=== PATIENT | female | born 1955 | race Caucasian/White ===

== ENCOUNTER 2016-07-29 10:32 | Outpatient (CLI) | payer MEDICAID | END 2016-07-29 10:33 | disposition home or self-care (01) | DX: J45.909 Unspecified asthma, uncomplicated (principal) ==

== ENCOUNTER 2016-10-22 07:45 | Outpatient (CLI) | payer MEDICAID | END 2016-10-22 23:59 | DX: R10.9 Unspecified abdominal pain (principal); E11.9 Type 2 diabetes mellitus without complications ==

== ENCOUNTER 2016-11-12 10:59 | Outpatient (CLI) | payer MEDICAID ==
--- NOTE | 2016-11-12 15:34 | XRAY Report ---
THREE VIEW LUMBAR SPINE: 11/12/2016 CLINICAL INDICATION: Degenerative disease. COMPARISON: 03/18/2016. FINDINGS: AP, lateral, and coned down views of the lumbar spine demonstrate mild degenerative disk a nd facet disease. There is no evidence of interval fracture or subluxation. The bowel gas pattern des ears unremarkable. IMPRESSION: STABLE DEGENERATIVE CHANGES, MILD. JOB #: [id number] EXT JOB #:[id number]
== END 2016-11-12 11:00 | disposition home or self-care (01) ==
LOC: DI.N 10:59
PROVIDERS: ATTEND Family Medicine
DX: M51.36 Other intervertebral disc degeneration, lumbar region (principal); M47.816 Spondylosis without myelopathy or radiculopathy, lumbar region
CPT/HCPCS: 72100

== ENCOUNTER 2017-02-04 10:34 | Outpatient (CLI) | payer MEDICAID ==
[2017-02-04 13:43] LABS: CALCIUM 9.8 mg/dL (8.5-10.3); POTASSIUM 3.7 mmol/L (3.5-5.0)
== END 2017-02-04 10:35 | disposition home or self-care (01) ==
LOC: LAB.N 10:34
PROVIDERS: ATTEND Family Medicine
DX: E11.9 Type 2 diabetes mellitus without complications (principal); E03.9 Hypothyroidism, unspecified
CPT/HCPCS: 36415; 80048; 83036; 84443

== ENCOUNTER 2017-05-21 08:00 | Outpatient (CLI) | payer MEDICAID ==
[2017-05-21 13:20] LABS: CALCIUM 9.6 mg/dL (8.5-10.3); CREATININE 1.1 mg/dL (0.4-1.0); POTASSIUM 3.4 mmol/L (3.5-5.0)
[2017-05-21 14:10] LABS: HEMOGLOBIN A1C 1.01 g/dL
== END 2017-05-21 08:01 | disposition home or self-care (01) ==
LOC: LAB.N 08:00
PROVIDERS: ATTEND Family Medicine
DX: E11.9 Type 2 diabetes mellitus without complications (principal); R19.4 Change in bowel habit
CPT/HCPCS: 36415; 80048; 82270; 83036

== ENCOUNTER 2017-06-03 06:08 | Day surgery (SDC) | payer MEDICAID ==
[2017-06-03] MEDS ORDERED: LACTATED RINGERS 1,000 ML IV ONE (07:17)
[2017-06-03] MEDS ORDERED: MIDAZOLAM 2 MG/2 ML VIAL IVP ONE (07:40)
[2017-06-03] MEDS ORDERED: fentaNYL 100 MCG/2 ML VIAL IVP ONE (07:40)
[2017-06-03] MEDS ORDERED: BENZOCAINE/TETRACAINE/BUTAMBEN SPRAY 56 GM TOP ONE (07:42)
[2017-06-03 08:35] VITALS: BP 125/61
== END 2017-06-03 06:09 | disposition home or self-care (01) ==
LOC: SDS 06:08
PROVIDERS: ATTEND Surgery
PROC: 0DB68ZX Excision of Stomach, Via Natural or Artificial Opening Endoscopic, Diagnostic (ICD-10-PCS; principal; 2017-06-03 07:30)
PROC: 0DBP8ZX Excision of Rectum, Via Natural or Artificial Opening Endoscopic, Diagnostic (ICD-10-PCS; 2017-06-03 07:30)
DX: D13.1 Benign neoplasm of stomach (principal); K62.1 Rectal polyp; K64.8 Other hemorrhoids; E11.22 Type 2 diabetes mellitus with diabetic chronic kidney disease; I12.9 Hypertensive chronic kidney disease with stage 1 through stage 4 chronic kidney disease, or unspecified chronic kidney disease; N18.3 Chronic kidney disease, stage 3 (moderate); Z79.4 Long term (current) use of insulin; Z79.84 Long term (current) use of oral hypoglycemic drugs; J45.909 Unspecified asthma, uncomplicated
CPT/HCPCS: 43239; 45385; A9270; J7120

== ENCOUNTER 2017-06-23 00:41 | Emergency (ER) | payer MEDICAID ==
[2017-06-23] MEDS ORDERED: DEXAMETHASONE 10 MG/ML VIAL IVP STA (01:27)
[2017-06-23] MEDS ORDERED: KETOROLAC 60 MG/2 ML VIAL IVP STA (01:27)
[2017-06-23] MEDS ORDERED: SODIUM CHLORIDE 0.9% 1,000 ML IV ONE (01:27)
--- NOTE | 2017-06-23 01:29 | ED Physician Documentation ---
PD HPI BACK PAIN - Stated complaint Stated Complaint: BACK PAIN - Chief complaint Chief Complaint: Trauma Ch/Bk - History obtained from History obtained from: Patient, Family - History of Present Illness Timing - onset: How many days ago (2) Timing - duration: Days (2) Timing - details: Abrupt onset, Still present Location: Lower, Left Quality: Pain, Spasm, Sharp, Similar to prior episodes Associated symptoms: No: Fever, Weakness, Numbness, Incontinent of urine, Unable to urinate, Hematuria, Incontinent of stool Improves with: Rest, Position Worsened by: Movement Contributing factors: Other (slipped in the stauffer and lukasz her back) Similar symptoms before: Diagnosis (sciatica) Recently seen: Not recently seen - Additional information Additional information: 61-year-old diabetic female on Lantus and metformin was in her home 2 days ago when she slipped in the stauffer and lukasz her back. She did not have a direct contusion of the back and she did not fall to the ground. She has had pain in her back worse than usual for the past 2 days and now she has intolerable pain. She does have some oxycodone at home and she is refused to take this. She states that she is getting up to urinate at night 4-5 times. She thinks that her diabetes has been controlled with sugars in the 120 range in the morning. Review of Systems Constitutional: denies: Fever, Chills, Myalgias Eyes: denies: Decreased vision Ears: denies: Ear pain Nose: denies: Rhinorrhea / runny nose, Congestion Throat: denies: Sore throat Cardiac: denies: Chest pain / pressure, Palpitations Respiratory: denies: Dyspnea, Cough GI: reports: Abdominal Pain, Nausea, Constipation, Diarrhea. denies: Vomiting : denies: Dysuria, Frequency Skin: denies: Rash Musculoskeletal: reports: Back pain. 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5 mg Tablet] glipiZIDE [Glucotrol] 10 mg PO BID 03/17/13 06/23/17 Insulin Glargine [Lantus Solostar] 100 unit SQ BID 06/02/17 06/23/17 Sulfamethoxazole/Trimethoprim 1 each PO BID #14 tablet 06/23/17 [Sulfamethoxazole-Tmp Ds Tablet] - Allergies Allergies/Adverse Reactions: Allergies Allergy/AdvReac Type Severity Reaction Status Date / Time codeine [Codeine] Allergy "gets Verified 06/23/17 00:52 crazy" phenazopyridine HCl * Allergy Itching Verified 06/23/17 00:52 [From Pyridium] - Social History Does the pt smoke?: No Smoking Status: Never smoker Does the pt drink ETOH?: No Does the pt have substance abuse?: No - POLST Patient has POLST: No PD ED PE NORMAL - Vitals Vital signs reviewed: Yes (hypertensive ) - General General: No acute distress, Well developed/nourished - HEENT HEENT: Atraumatic, PERRL, EOMI - Neck Neck: Supple, no meningeal sign - Cardiac Cardiac: RRR, No murmur - Respiratory Respiratory: No respiratory distress, Clear bilaterally - Abdomen Abdomen: Soft, Non tender - Back Back: No CVA TTP, No spinal TTP, Other (There is some mild tenderness to the lower lumbar spine on the left with palpable muscle spam. ) - Derm Derm: Normal color, Warm and dry, No rash - Extremities Extremities: No deformity, No edema - Neuro Neuro: No motor deficit, No sensory deficit Eye Opening: Spontaneous Motor: Obeys Commands Verbal: Oriented GCS Score: 15 - Psych Psych: Normal mood, Normal affect Results - Vitals Vitals: Vital Signs - 24 hr 06/23/17 06/23/17 06/23/17 00:48 02:21 02:40 Temperature 36.7 C Heart Rate 83 70 70 Respiratory 18 16 14 Rate Blood Pressure 173/77 H 147/83 H 146/82 H O2 Saturation 98 97 96 06/23/17 06/23/17 03:23 03:54 Temperature 36.6 C Heart Rate 73 73 Respiratory 16 16 Rate Blood Pressure 150/89 H 157/86 H O2 Saturation 95 97 Oxygen O2 Source Room air - Labs Labs: Laboratory Tests 06/23/17 06/23/17 06/23/17 01:40 01:40 02:30 WBC 9.5 RBC 5.35 Hgb 14.0 Hct 42.7 MCV 79.9 L MCH 26.2 L MCHC 32.8 RDW 14.8 Plt Count 231 MPV 8.8 Neut # 5.5 Lymph # 3.0 [place] # 0.6 Eos # 0.3 Baso # 0.1 Absolute Nucleated RBC 0.00 Nucleated RBC % 0.0 Sodium 136 Potassium 3.2 L Chloride 102 Carbon Dioxide 24 Anion Gap 10.0 BUN 12 Creatinine 0.9 Estimated GFR (MDRD) 63 L Glucose 192 H Calcium 9.1 Total Bilirubin 0.8 AST 43 H ALT 52 Alkaline Phosphatase 64 Total Protein 7.7 Albumin 3.9 Globulin 3.8 Albumin/Globulin Ratio 1.0 Lipase 21 L Urine Color DARK YELLOW Urine Clarity CLOUDY Urine pH 6.0 Ur Specific [place] >=1.030 H Urine Protein 30 H Urine Glucose (UA) 100 H Urine Ketones NEGATIVE Urine Occult Blood NEGATIVE Urine Nitrite POSITIVE H Urine Bilirubin NEGATIVE Urine Urobilinogen 0.2 (NORMAL) Ur Leukocyte Esterase NEGATIVE Urine RBC 6-10 H Urine WBC 6-10 H Ur Squamous Epith Cells FEW Squamous Urine Crystals 0-2 Calcium Oxalate Urine Bacteria Many H Ur Microscopic Review INDICATED Urine Culture Comments INDICATED Procedures - IVC sono (time) 0125 Bedside IVC sono: IVC measures (cm) (1.18), IVC collapsed c insp (cm) (complete) , Dehydration (est 1 liter down) PD MEDICAL DECISION MAKING - ED course Complexity details: reviewed old records, reviewed results, re-evaluated patient , considered differential, d/w patient, d/w family ED course: 61-year-old diabetic female comes to the emergency department after jarring her back 2 days ago and has persistent pain. She is found to be dehydrated on interrogation of the inferior vena cava and an IV is begun she is given a liter of saline 30 of Toradol and 10 of dexamethasone. She did get warning about the dexamethasone causing some increase in her blood sugar. She has some improvement and a urine specimen is obtained that suggests an acute infection. I do not think this is pyelo. She is given a dose of rocephin. My interpretation of the patient's presentation is that she has had urinary tract infection and elevated blood glucose causing dehydration and when she lukasz her back she was unable to control the spasms of the muscles in her back and this was improved by the use of the intravenous hydration and medications. Departure - Departure Disposition: 01 Home, Self Care Clinical Impression: Dehydration, Spasm of back muscles Urinary tract infection Qualifiers: Urinary tract infection type: acute cystitis Hematuria presence: without hematuria Qualified Code(s): N30.00 - Acute cystitis without hematuria Instructions: ED UTI Cystitis Female, ED Dehydration, ED Low Back Pain Injury Follow-Up: Barrington Robles MD [Primary Care Provider] - Prescriptions: Sulfamethoxazole/Trimethoprim [Sulfamethoxazole-Tmp Ds Tablet] 1 each PO BID # 14 tablet
[2017-06-23 01:51] LABS: BASOPHILS # (AUTO) 0.1 10^3/uL (0.0-0.1); BASOPHILS % (AUTO) 1.4 %; EOSINOPHILS # (AUTO) 0.3 10^3/uL (0.0-0.7); EOSINOPHILS % (AUTO) 2.8 %; HCT - HEMATOCRIT 42.7 % (37.0-47.0); LYMPHOCYTES % (AUTO) 31.1 %; MEAN CORPUSCULAR HEMOGLOBIN 26.2 pg (27.0-31.0); MEAN CORPUSCULAR HGB CONC 32.8 g/dL (32.0-36.0); MEAN CORPUSCULAR VOLUME 79.9 fL (81.0-99.0); MEAN PLATELET VOLUME 8.8 fL (7.9-10.8); MONOCYTES # (AUTO) 0.6 10^3/uL (0.0-1.0); MONOCYTES % (AUTO) 6.6 %; NEUTROPHILS # (AUTO) 5.5 10^3/uL (1.5-6.6); NEUTROPHILS % (AUTO) 58.1 %; RED BLOOD COUNT 5.35 10^6/uL (4.20-5.40); RED CELL DISTRIBUTION WIDTH 14.8 % (12.0-15.0); UNCORRECTED WHITE BLOOD COUNT 9.5 x10^3/uL; WHITE BLOOD COUNT 9.5 x10^3/uL (4.8-10.8)
[2017-06-23 02:03] LABS: BILIRUBIN,TOTAL 0.8 mg/dL (0.2-1.0); CALCIUM 9.1 mg/dL (8.5-10.3); CREATININE 0.9 mg/dL (0.4-1.0); POTASSIUM 3.2 mmol/L (3.5-5.0); TOTAL PROTEIN 7.7 g/dL (6.7-8.2)
[2017-06-23] MEDS ORDERED: POTASSIUM BICARB 25 MEQ TABLET PO STA (02:15)
[2017-06-23 02:38] LABS: BILIRUBIN,URINE NEGATIVE (NEGATIVE)
[2017-06-23 02:44] LABS: UA w/ MICROSCOPIC CHARGE YES
[2017-06-23 02:56] LABS: UR CULTURE IF IND INDICATED
[2017-06-23] MEDS ORDERED: cefTRIAXone 1 GM in SODIUM CHLORIDE 0.9% MINIBAG 100 ML IV STA (03:08)
[2017-06-23 03:56] VITALS: BP 157/86
== END 2017-06-23 04:14 | disposition home or self-care (01) ==
LOC: ED 00:41
DX: E86.0 Dehydration (principal); M62.830 Muscle spasm of back; W01.0XXA Fall on same level from slipping, tripping and stumbling without subsequent striking against object, initial encounter; Y92.018 Other place in single-family (private) house as the place of occurrence of the external cause; N30.00 Acute cystitis without hematuria; E11.9 Type 2 diabetes mellitus without complications; Z79.4 Long term (current) use of insulin; I10 Essential (primary) hypertension; E78.00 Pure hypercholesterolemia, unspecified; E03.9 Hypothyroidism, unspecified; M79.7 Fibromyalgia; M19.90 Unspecified osteoarthritis, unspecified site; Z79.82 Long term (current) use of aspirin
CPT/HCPCS: 36415; 80053; 81001; 83690; 85025; 87086; 87181; 96361; 96365; 96375; 99283; 99284; A9270; 81003

== ENCOUNTER 2017-06-25 06:50 | Emergency (ER) | payer MEDICAID ==
[2017-06-25] MEDS ORDERED: SODIUM CHLORIDE 0.9% 1,000 ML IV ONE (07:28)
[2017-06-25] MEDS ORDERED: HYDROmorphone 1 MG/ML SYRINGE IVP STA (07:28)
[2017-06-25] MEDS ORDERED: ONDANSETRON 4 MG/2 ML VIAL IVP STA (07:28)
--- NOTE | 2017-06-25 07:31 | ED Physician Documentation ---
PD HPI ABD PAIN - Stated complaint Stated Complaint: LT SIDE PX - Chief complaint Chief Complaint: Abd Pain - History obtained from History obtained from: Patient - History of Present Illness Timing - duration: Days (5) Timing - details: Still present Quality: Pain Location: LUQ, LLQ Radiation: Left flank Worsened by: Moving, Breathing, Palpation Associated symptoms: Nausea. No: Fever, Vomiting, Diarrhea, Dysuria, Chest pain Similar symptoms before: Has not had sx before Recently seen: Emergency Dept (2 days ago.) - Treatment prior to arrival Treatment prior to arrival: Tylenol and oxycodone without relief. - Additional information Additional information: The patient is a 61-year-old female who presents with left abdominal and flank pain that started after stumbling and falling at home about 5 days ago. She was seen in the emergency department here 2 days ago, and was treated for musculoskeletal back pain. She denies relief of symptoms with Tylenol and oxycodone. She was also treated for urinary tract infection with parenteral ceftriaxone followed by oral Bactrim. She reports resolution of dysuria since being on antibiotics. She denies fever. She reports nausea, without vomiting. Her pain is worse with respiratory inspiration, or with movement. She denies history of similar symptoms in the past. Her past medical history is significant for chronic back pain associated with fibromyalgia and spinal stenosis. She reports her pain today is different from her chronic back pain. She underwent upper endoscopy and colonoscopy 2 weeks ago, including polypectomy , without incident. Review of Systems Constitutional: denies: Fever Ears: denies: Tinnitus/ringing Nose: denies: Congestion Throat: denies: Sore throat Cardiac: denies: Chest pain / pressure Respiratory: denies: Dyspnea, Cough GI: reports: Abdominal Pain, Nausea. denies: Vomiting, Diarrhea, Bloody / black stool : denies: Dysuria Skin: denies: Lesions Musculoskeletal: reports: Back pain. 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5 mg Tablet] glipiZIDE [Glucotrol] 10 mg PO BID 03/17/13 06/25/17 Insulin Glargine [Lantus Solostar] 100 unit SQ BID 06/02/17 06/25/17 Sulfamethoxazole/Trimethoprim 1 each PO BID #14 tablet 06/23/17 06/25/17 [Sulfamethoxazole-Tmp Ds Tablet] HYDROmorphone [Dilaudid] 2 mg PO Q6H PRN #15 tablet 06/25/17 - Allergies Allergies/Adverse Reactions: Allergies Allergy/AdvReac Type Severity Reaction Status Date / Time codeine [Codeine] Allergy "gets Verified 06/25/17 06:56 crazy" phenazopyridine HCl * Allergy Itching Verified 06/25/17 06:56 [From Pyridium] - Living Situation Living Situation: reports: With spouse/s.o. Living Arrangement: reports: At home - Social History Does the pt smoke?: No Smoking Status: Never smoker Does the pt drink ETOH?: No Does the pt have substance abuse?: No - Immunizations Immunizations are current?: Yes - POLST Patient has POLST: No PD ED PE NORMAL - Vitals Vital signs reviewed: Yes (hypertensive) - General General: Alert and oriented X 3, Well developed/nourished, Other (overweight) - HEENT HEENT: Atraumatic, EOMI, Moist mucous membranes, Pharynx benign - Neck Neck: Supple, no meningeal sign, No bony TTP, No JVD, No bruit - Cardiac Cardiac: RRR, No murmur - Respiratory Respiratory: No respiratory distress, Clear bilaterally, Other (Tenderness to palpation of left lower chest wall.) - Abdomen Abdomen: Normal bowel sounds, Soft, Other (Tenderness to palpation of left abdomen, upper more than lower, without rebound tenderness or guarding.) - Back Back: No spinal TTP, Other (Mild tenderness to percussion in left flank.) - Derm Derm: No rash - Extremities Extremities: No tenderness to palpate, No edema, No calf tenderness / cord - Neuro Neuro: Alert and oriented X 3, No motor deficit, No sensory deficit, Normal speech Results - Vitals Vitals: Vital Signs - 24 hr 06/25/17 06/25/17 09:08 10:13 Heart Rate 71 78 Respiratory 16 17 Rate Blood Pressure 177/90 H 157/81 H O2 Saturation 97 97 Oxygen O2 Source Room air - Labs Labs: Laboratory Tests 06/25/17 06/25/17 06/25/17 07:43 07:43 07:44 WBC 9.2 RBC 5.31 Hgb 14.1 Hct 42.2 MCV 79.5 L MCH 26.5 L MCHC 33.3 RDW 15.0 Plt Count 215 MPV 8.8 Neut # 5.4 Lymph # 3.0 [place] # 0.5 Eos # 0.2 Baso # 0.1 Absolute Nucleated RBC 0.00 Nucleated RBC % 0.0 Sodium 139 Potassium 3.4 L Chloride 102 Carbon Dioxide 24 Anion Gap 13.0 BUN 12 Creatinine 0.9 Estimated GFR (MDRD) 63 L Glucose 140 H Calcium 9.4 Total Bilirubin 0.8 AST 41 ALT 52 Alkaline Phosphatase 43 Total Protein 7.7 Albumin 4.0 Globulin 3.7 Albumin/Globulin Ratio 1.1 Lipase 27 Urine Color YELLOW Urine Clarity CLEAR Urine pH 6.5 Ur Specific [place] 1.010 Urine Protein TRACE Urine Glucose (UA) NEGATIVE Urine Ketones NEGATIVE Urine Occult Blood NEGATIVE Urine Nitrite NEGATIVE Urine Bilirubin NEGATIVE Urine Urobilinogen 0.2 (NORMAL) Ur Leukocyte Esterase NEGATIVE Ur Microscopic Review NOT INDICATED Urine Culture Comments NOT INDICATED - Rads (name of study) CT abd/pelvis Radiology: Prelim report reviewed, EMP read contemporaneously, See rad report ( 1. Mild mesenteric adenopathy and associated mesenteric hazy opacity, of indeterminate chronicity. Medicine tear arthritis is a consideration. 2. No other acute abnormality of the abdomen or pelvis demonstrated. 3. Probable 0.8 cm left renal cyst although it is too small to definitively characterize. Ultrasound correlation could be considered. 4. Additional chronic findings as above.) PD MEDICAL DECISION MAKING - ED course Complexity details: reviewed old records, reviewed results, re-evaluated patient , considered differential, d/w patient, d/w family ED course: The patient's presentation is most consistent with musculo-skeletal back pain, including left posterior rib contusion. Her upper abdominal pain is likely associated with her musculoskeletal pain, and CT scan of the abdomen with IV contrast reveals no evidence of diverticulitis. It does reveal mild mesenteric adenopathy of uncertain chronicity or etiology. Her exam does not suggest an acute abdomen, and there is no clinical evidence to suggest pyelonephritis. Treatment in the emergency department included administration of normal saline 750 mL IV, hydromorphone 1 mg IV, and ondansetron 4 mg IV. Her symptoms improved with the above treatment. She is being discharged with prescription for Dilaudid 2 mg tablets. I discussed with her and her the expected course of injury, symptomatic treatment and outpatient follow-up, as well as potentially worrisome signs or symptoms that should prompt reevaluation in the emergency department. Departure - Departure Disposition: 01 Home, Self Care Clinical Impression: Back pain due to injury Contusion of rib on left side Qualifiers: Encounter type: initial encounter Qualified Code(s): S20.212A - Contusion of left front wall of thorax, initial encounter Abdominal pain Qualifiers: Abdominal location: generalized Qualified Code(s): R10.84 - Generalized abdominal pain Condition: Stable Instructions: ED Abdominal Pain Unkn Cause, ED Contusion Rib Follow-Up: Barrington Robles MD [Primary Care Provider] - Prescriptions: HYDROmorphone [Dilaudid] 2 mg PO Q6H PRN #15 tablet PRN Reason: Pain Comments: You can use Dilaudid as prescribed if needed for pain. Continue taking the antibiotic as previously prescribed. Apply ice pack to your back intermittently for the next 3 days. Let pain be your guide to activity level. Follow up with your primary physician within 1 week. Call to schedule an appointment. Return to the emergency department if you develop increasing pain, fever, persistent vomiting, or otherwise worsening symptoms. Discharge Date/Time: 06/25/17 10:15
[2017-06-25] MEDS ORDERED: IOPAMIDOL-300 100 ML VIAL ONE (07:39)
[2017-06-25 07:53] LABS: BASOPHILS # (AUTO) 0.1 10^3/uL (0.0-0.1); BASOPHILS % (AUTO) 0.7 %; EOSINOPHILS # (AUTO) 0.2 10^3/uL (0.0-0.7); EOSINOPHILS % (AUTO) 1.8 %; HCT - HEMATOCRIT 42.2 % (37.0-47.0); HGB - HEMOGLOBIN 14.1 g/dL (12.0-16.0); LYMPHOCYTES % (AUTO) 33.1 %; MEAN CORPUSCULAR HEMOGLOBIN 26.5 pg (27.0-31.0); MEAN CORPUSCULAR HGB CONC 33.3 g/dL (32.0-36.0); MEAN CORPUSCULAR VOLUME 79.5 fL (81.0-99.0); MEAN PLATELET VOLUME 8.8 fL (7.9-10.8); MONOCYTES # (AUTO) 0.5 10^3/uL (0.0-1.0); MONOCYTES % (AUTO) 5.7 %; NEUTROPHILS # (AUTO) 5.4 10^3/uL (1.5-6.6); NEUTROPHILS % (AUTO) 58.7 %; RED BLOOD COUNT 5.31 10^6/uL (4.20-5.40); UNCORRECTED WHITE BLOOD COUNT 9.2 x10^3/uL; WHITE BLOOD COUNT 9.2 x10^3/uL (4.8-10.8)
[2017-06-25 08:04] LABS: ALBUMIN/GLOBULIN RATIO 1.1 (1.0-2.2); CALCIUM 9.4 mg/dL (8.5-10.3); CREATININE 0.9 mg/dL (0.4-1.0); POTASSIUM 3.4 mmol/L (3.5-5.0); TOTAL PROTEIN 7.7 g/dL (6.7-8.2)
[2017-06-25 08:11] LABS: BILIRUBIN,URINE NEGATIVE (NEGATIVE); PH,URINE 6.5 PH (5.0-7.5)
[2017-06-25 08:14] LABS: UA CHARGE (STRIP ONLY) YES; UR CULTURE IF IND NOT INDICATED
[2017-06-25] MEDS ORDERED: IOPAMIDOL-300 100 ML VIAL IVP ONE (08:18)
--- NOTE | 2017-06-25 08:33 | CT Report ---
EXAM: CT ABDOMEN AND PELVIS EXAM DATE: 06/25/2017 08:18 AM. CLINICAL HISTORY: Left sided abdominal pain. Left lower quadrant pain. COMPARISONS: None. TECHNIQUE: Routine helical CT imaging was performed through the abdomen and pelvis. IV contrast: 100M L OF ISOVUE 300. Enteric contrast: No. Reconstructions: Coronal and sagittal. In accordance with CT protocol optimization, one or more of the following dose reduction techniques w ere utilized for this exam: automated exposure control, adjustment of mA and/or KV based on patient s ize, or use of iterative reconstructive technique. FINDINGS: Lung Bases: Unremarkable. Mild cardiac enlargement. Liver: Normal. No masses. Gallbladder/Bile Ducts: Unremarkable. Spleen: Normal. Pancreas: Normal. Adrenal Glands: Normal. Kidneys: Multiple areas of cortical thinning on the right are consistent with scarring. 0.8 cm left c ortical hypodensity likely represents a cyst although it is too small to definitively characterize. N o definite mass. No hydronephrosis or hydroureter. Peritoneal Cavity/Bowel: No free fluid or free air. The appendix is not clearly identified but there is no evidence of appendicitis. No definite acute abnormality of the bowel. There are some small and mildly enlarged mesenteric lymph nodes, maximum short axis diameter 0.8 cm. No other evidence of lymp hadenopathy. There is also mild hazy opacity within the resident enteric root which could represent e jigna and possibly mesenteritis although it is of indeterminate chronicity. Pelvic Organs: Normal bladder. Status post hysterectomy. Vasculature: Moderate calcification, without aneurysm. Bones: Degenerative disease of the spine. No acute abnormality. Surgical anchors in the pubic region bilaterally. Other: Small fat-containing umbilical hernia. IMPRESSION: 1. Mild mesenteric adenopathy and associated mesenteric hazy opacity, of indeterminate chronicity. Me senteritis is a consideration. 2. No other acute abnormality of the abdomen or pelvis demonstrated. 3. Probable 0.8 cm left renal cyst although it is too small to definitively characterize. Ultrasound correlation could be considered. 4. Additional chronic findings, as above. [facility] Referring Provider Line: [phone] SITE ID: [id number]
[2017-06-25] MEDS ORDERED: HYDROmorphone 2 MG TABLET PO STA (09:47)
[2017-06-25 10:13] VITALS: BP 157/81
[2017-06-26 06:35] LABS: BILIRUBIN,TOTAL 0.8 mg/dL (0.2-1.0)
== END 2017-06-25 10:15 | disposition home or self-care (01) ==
LOC: ED 06:50
DX: S20.212A Contusion of left front wall of thorax, initial encounter (principal); S39.92XA Unspecified injury of lower back, initial encounter; W01.0XXA Fall on same level from slipping, tripping and stumbling without subsequent striking against object, initial encounter; Y92.019 Unspecified place in single-family (private) house as the place of occurrence of the external cause; R10.84 Generalized abdominal pain; M79.7 Fibromyalgia; M19.90 Unspecified osteoarthritis, unspecified site; M48.00 Spinal stenosis, site unspecified; I10 Essential (primary) hypertension; E78.00 Pure hypercholesterolemia, unspecified; E03.9 Hypothyroidism, unspecified; Z79.82 Long term (current) use of aspirin
CPT/HCPCS: 36415; 74177; 80053; 81003; 83690; 85025; 96374; 99283; 99284; A9270; J1170; Q9967; 81001; 87086

== ENCOUNTER 2017-06-27 | Emergency (ER) | payer MEDICAID ==
[2017-06-27] MEDS ORDERED: KETOROLAC 60 MG/2 ML VIAL IM STA (00:19)
[2017-06-27] MEDS ORDERED: diazePAM INJ 5 MG/ML SYRINGE IM STA (00:19)
--- NOTE | 2017-06-27 00:26 | ED Physician Documentation ---
History of Present Illness - Stated complaint Stated Complaint: ABDOMINAL PAIN - Chief complaint Chief Complaint: Abd Pain - History obtained from History obtained from: Patient, Family - History of Present Illness Timing: How many days ago (5) Pain level max: 10 Pain level now: 10 Improved by: dilaudid Worsened by: movement - Additonal information Additional information: Patient is a 61-year-old female presents to the emergency department with several days worth of abdominal pain. She has been seen in the emergency department twice this week already for same. Normal labs. No acute findings on CT scan other than possible mesenteric adenitis. States her pain is controlled with Dilaudid at home, but only lasts about 4 hours. She also has fibromyalgia and recently stopped taking her Lyrica. Does not want to be started back on this. Pain is worse with movement. She states she did not actually fall several days ago, but more backed up into the wall. She was also being treated for a UTI that grew out E. coli on culture. She is taking her antibiotics. Review of Systems Ten Systems: 10 systems reviewed and negative Constitutional: denies: Fever, Chills Ears: denies: Ear pain Nose: denies: Rhinorrhea / runny nose, Congestion Throat: denies: Sore throat Cardiac: denies: Chest pain / pressure Respiratory: denies: Cough, Wheezing GI: reports: Constipation (no BM x 3 days). 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5 mg Tablet] glipiZIDE [Glucotrol] 10 mg PO BID 03/17/13 06/25/17 Insulin Glargine [Lantus Solostar] 100 unit SQ BID 06/02/17 06/25/17 Sulfamethoxazole/Trimethoprim 1 each PO BID #14 tablet 06/23/17 06/25/17 [Sulfamethoxazole-Tmp Ds Tablet] HYDROmorphone [Dilaudid] 2 mg PO Q6H PRN #15 tablet 06/25/17 HYDROmorphone [Dilaudid] 2 mg PO Q4H PRN #10 tablet 06/27/17 Ondansetron Odt [Zofran] 4 mg TL Q6H PRN #10 tablet 06/27/17 diazePAM [Valium] 5 mg PO TID PRN #15 tablet 06/27/17 - Allergies Allergies/Adverse Reactions: Allergies Allergy/AdvReac Type Severity Reaction Status Date / Time codeine [Codeine] Allergy "gets Verified 06/25/17 06:56 crazy" phenazopyridine HCl * Allergy Itching Verified 06/25/17 06:56 [From Pyridium] - Social History Does the pt smoke?: No Smoking Status: Never smoker Does the pt drink ETOH?: No Does the pt have substance abuse?: No - Immunizations Immunizations are current?: Yes - POLST Patient has POLST: No PD ED PE NORMAL - Vitals Vital signs reviewed: Yes - General General: Alert and oriented X 3, No acute distress - HEENT HEENT: Moist mucous membranes - Neck Neck: Supple, no meningeal sign - Cardiac Cardiac: RRR - Respiratory Respiratory: No respiratory distress, Clear bilaterally - Abdomen Abdomen: Soft, Non distended, Other (mild diffuse TTP without peritoneal signs.) - Back Back: No spinal TTP, Other (TTP paraspinal L low lumbar. mild spasm. NVI.) - Derm Derm: Warm and dry - Neuro Neuro: Alert and oriented X 3 - Psych Psych: Normal mood, Normal affect Results - Vitals Vitals: Vital Signs - 24 hr 06/27/17 06/27/17 00:03 01:02 Temperature 35.9 C L 36.0 C L Heart Rate 88 84 Respiratory 20 15 Rate Blood Pressure 177/94 H 165/86 H O2 Saturation 95 92 Oxygen O2 Source Room air PD MEDICAL DECISION MAKING - ED course Complexity details: reviewed old records, reviewed results, re-evaluated patient , considered differential, d/w patient ED course: Patient is a 61-year-old female who presents to the emergency department with abdominal and back pain. She has had normal labs 2 this week as well as a CT scan which showed possible mesenteric adenitis. No evidence of lymphoma or leukemia. Her pain is well-controlled with Dilaudid, but only for approximately 4 hours. We will also add a muscle relaxant to her, she felt good relief with Valium. Also counseled regarding constipation and that she should be on a laxative while taking narcotics. She states that her pain is greatly improved and she would like to go home at this time. Patient is tolerating p.o. without difficulty. Abdomen is soft, nontender nondistended on serial exam. Patient counseled regarding signs and symptoms for which I believe and urgent re-evaluation would be necessary. Patient with good understanding of and agreement to plan and is comfortable going home at this time This document was made in part using voice recognition software. While efforts are made to proofread this document, sound alike and grammatical errors may occur. Departure - Departure Disposition: 01 Home, Self Care Clinical Impression: Spasm of back muscles, Mesenteric adenitis Urinary tract infection Qualifiers: Urinary tract infection type: acute cystitis Hematuria presence: without hematuria Qualified Code(s): N30.00 - Acute cystitis without hematuria Condition: Stable Instructions: ED Adenitis Mesenteric Follow-Up: Barrington Robles MD [Primary Care Provider] - Within 1 week Prescriptions: diazePAM [Valium] 5 mg PO TID PRN #15 tablet PRN Reason: Spasms HYDROmorphone [Dilaudid] 2 mg PO Q4H PRN #10 tablet PRN Reason: Abdominal Pain Ondansetron Odt [Zofran] 4 mg TL Q6H PRN #10 tablet PRN Reason: Nausea / Vomiting Comments: Return if you worsen. This should improve over the next few days to a week or so. Do not drive or operate heavy machinery while taking the Valium or the hydromorphone. Do not drink alcohol or drive while on narcotic pain medicine. Note that many narcotic pain relievers also contain tylenol/acetaminophen. Please ensure that your total dose of acetaminophen from all sources does not exceed 3 grams (3000mg) per day. You may constipated on this medication, take a stool softener such as "Colace" twice a day while you are on it. Also recommend a [id number] laxative such as senna or MiraLAX any day that you do not have a bowel movement. If you received narcotic pain medication in the emergency department, do not drive or operate machinery for the next 24 hours.
[2017-06-27] MEDS ORDERED: ONDANSETRON ODT 4 MG TABLET TL STA (00:59)
[2017-06-27 01:02] VITALS: BP 165/86
== END 2017-06-27 01:09 | disposition home or self-care (01) ==
LOC: ED
DX: I88.0 Nonspecific mesenteric lymphadenitis (principal); N30.00 Acute cystitis without hematuria; M62.830 Muscle spasm of back; M79.7 Fibromyalgia; I10 Essential (primary) hypertension; E78.00 Pure hypercholesterolemia, unspecified; E03.9 Hypothyroidism, unspecified; M19.90 Unspecified osteoarthritis, unspecified site; Z79.82 Long term (current) use of aspirin
CPT/HCPCS: 96372; 99283; 99284

== ENCOUNTER 2017-07-03 13:15 | Emergency (ER) | payer MEDICAID ==
[2017-07-03] MEDS ORDERED: HYDROcod/ACETAM 5/325 MG TABLET PO STA (14:24)
--- NOTE | 2017-07-03 14:26 | ED Physician Documentation ---
History of Present Illness - Stated complaint Stated Complaint: RASH ON BACK - Chief complaint Chief Complaint: Heent - History obtained from History obtained from: Patient, Family - History of Present Illness Timing: Other (4 days of painful rash from the Left flank down to the left lower quadrant with some myalgias but no fevers.) Review of Systems Constitutional: denies: Fever, Chills Throat: reports: Reviewed and negative Cardiac: reports: Reviewed and negative Respiratory: reports: Reviewed and negative PD PAST MEDICAL HISTORY - Past Medical History Past Medical History: Yes Cardiovascular: Hypertension, High cholesterol Respiratory: Shortness of breath, Other Neuro: Headache/migraine Endocrine/Autoimmune: HyPOthyroidism Psych: Anxiety, Other Musculoskeletal: Osteoarthritis, Fibromyalgia, Chronic back pain, Other - Past Surgical History Past Surgical History: Yes Ortho: Knee replacement, Carpal Tunnel surgery, 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5 mg Tablet] glipiZIDE [Glucotrol] 10 mg PO BID 03/17/13 07/03/17 Insulin Glargine [Lantus Solostar] 100 unit SQ BID 06/02/17 07/03/17 Ondansetron Odt [Zofran] 4 mg TL Q6H PRN #10 tablet 06/27/17 07/03/17 diazePAM [Valium] 5 mg PO TID PRN #15 tablet 06/27/17 07/03/17 Acyclovir 800 mg PO 5XD 10 Days tablet 07/03/17 Gabapentin 300 mg PO TID #20 capsule 07/03/17 HYDROcod/ACETAM 5/325 [[place] 5/325] 1 - 2 ea PO Q6H PRN #15 tablet 07/03/17 Methocarbamol 500 mg PO Q8H PRN 07/03/17 07/03/17 - Allergies Allergies/Adverse Reactions: Allergies Allergy/AdvReac Type Severity Reaction Status Date / Time codeine [Codeine] Allergy "gets Verified 07/03/17 13:31 crazy" phenazopyridine HCl * Allergy Itching Verified 07/03/17 13:31 [From Pyridium] - Social History Does the pt smoke?: No Smoking Status: Never smoker Does the pt drink ETOH?: No Does the pt have substance abuse?: No - Immunizations Immunizations are current?: Yes - POLST Patient has POLST: No PD ED PE NORMAL - Vitals Vital signs reviewed: Yes - General General: Alert and oriented X 3, No acute distress - Derm Derm: Other (She has zoster from the left flank down to the left lower quadrant without signs of superinfection.) - Neuro Neuro: Alert and oriented X 3, Normal speech Results - Vitals Vitals: Vital Signs - 24 hr 07/03/17 13:28 Temperature 36.0 C L Heart Rate 95 Respiratory 20 Rate Blood Pressure 145/90 H O2 Saturation 95 Oxygen O2 Source Room air PD MEDICAL DECISION MAKING - ED course ED course: Steroids are held given diabetes. Departure - Departure Disposition: 01 Home, Self Care Clinical Impression: Herpes zoster Qualifiers: Herpes zoster complications: without complications Qualified Code(s): B02.9 - Zoster without complications Condition: Good Record reviewed to determine appropriate education?: Yes Instructions: ED Shingles Prescriptions: Acyclovir 800 mg PO 5XD 10 Days tablet Gabapentin 300 mg PO TID #20 capsule HYDROcod/ACETAM 5/325 [[place] 5/325] 1 - 2 ea PO Q6H PRN #15 tablet PRN Reason: Pain Comments: Call your doctor to arrange a follow-up appointment, make the next available appointment. In the interim, return anytime if worse or if new symptoms develop. Your blood pressure was elevated today on check into the emergency department. This does not mean that you have hypertension, it is a common phenomenon to come to the emergency department and have elevated blood pressure. I recommend that you see your primary care physician within the week to have it rechecked when you are feeling better.
[2017-07-03 14:48] VITALS: BP 141/84
== END 2017-07-03 14:49 | disposition home or self-care (01) ==
LOC: ED 13:15
DX: B02.9 Zoster without complications (principal); I10 Essential (primary) hypertension; E03.9 Hypothyroidism, unspecified; E78.00 Pure hypercholesterolemia, unspecified; Z96.659 Presence of unspecified artificial knee joint
CPT/HCPCS: 99283; A9270

== ENCOUNTER 2017-07-09 11:14 | Emergency (ER) | payer MEDICAID ==
[2017-07-09 12:06] LABS: BASOPHILS # (AUTO) 0.1 10^3/uL (0.0-0.1); BASOPHILS % (AUTO) 1.2 %; EOSINOPHILS # (AUTO) 0.2 10^3/uL (0.0-0.7); HGB - HEMOGLOBIN 14.6 g/dL (12.0-16.0); LYMPHOCYTES # (AUTO) 2.1 10^3/uL (1.5-3.5); LYMPHOCYTES % (AUTO) 26.8 %; MEAN CORPUSCULAR HEMOGLOBIN 26.9 pg (27.0-31.0); MEAN CORPUSCULAR HGB CONC 33.2 g/dL (32.0-36.0); MEAN CORPUSCULAR VOLUME 80.9 fL (81.0-99.0); MEAN PLATELET VOLUME 8.4 fL (7.9-10.8); MONOCYTES # (AUTO) 0.4 10^3/uL (0.0-1.0); MONOCYTES % (AUTO) 5.3 %; NEUTROPHILS # (AUTO) 5.1 10^3/uL (1.5-6.6); NEUTROPHILS % (AUTO) 63.7 %; PLT - PLATELET COUNT 204 10^3/uL (130-450); RED BLOOD COUNT 5.41 10^6/uL (4.20-5.40); RED CELL DISTRIBUTION WIDTH 14.7 % (12.0-15.0); WHITE BLOOD COUNT 7.9 x10^3/uL (4.8-10.8)
[2017-07-09 12:18] LABS: ALBUMIN 4.3 g/dL (3.2-5.5); BILIRUBIN,TOTAL 0.6 mg/dL (0.2-1.0); CALCIUM 10.4 mg/dL (8.5-10.3); TOTAL PROTEIN 8.4 g/dL (6.7-8.2)
[2017-07-09 12:24] LABS: BILIRUBIN,URINE NEGATIVE (NEGATIVE); CLARITY,URINE CLEAR (CLEAR); GLUCOSE, URINE (UA) NEGATIVE (NEGATIVE); KETONES,URINE (UA) NEGATIVE (NEGATIVE); LEUKOCYTE ESTERASE, URINE NEGATIVE (NEGATIVE); NITRITE,URINE NEGATIVE (NEGATIVE); OCCULT BLOOD,URINE NEGATIVE (NEGATIVE); PROTEIN,URINE NEGATIVE (NEGATIVE); UROBILINOGEN,URINE 0.2 (NORMAL) E.U./dL (NORMAL)
[2017-07-09] MEDS ORDERED: HYDROmorphone 1 MG/ML SYRINGE IVP STA (13:48)
[2017-07-09] MEDS ORDERED: SODIUM CHLORIDE 0.9% 1,000 ML IV ONE (13:48)
[2017-07-09] MEDS ORDERED: ONDANSETRON 4 MG/2 ML VIAL IVP STA (13:48)
--- NOTE | 2017-07-09 15:05 | ED Physician Documentation ---
PD HPI ABD PAIN - Stated complaint Stated Complaint: GLF/ABD PX/DIZZY - Chief complaint Chief Complaint: Abd Pain - History obtained from History obtained from: Patient, Family (spouse) - History of Present Illness Timing - onset: How many weeks ago (3) Timing - details: Waxing and waning Quality: Pain Location: All over / everywhere Worsened by: Eating Associated symptoms: Nausea, Vomiting Similar symptoms before: Work up / diagnostics (CT scan of the abdomen and pelvis 2 weeks ago revealed mesenteric adenitis.) Recently seen: Emergency Dept (Seen in the emergency department here one week ago, and diagnosed with shingles involving the left abdominal wall.) - Additional information Additional information: The patient is a 61-year-old female who complains of abdominal pain which has been waxing and waning for the past 3 weeks. She was seen here 2 weeks ago for abdominal pain and had a workup including CT scan of the abdomen and pelvis which revealed mesenteric adenitis, and no other significant findings. One week ago she was seen here with a left sided abdominal rash, and was diagnosed with shingles. Prescriptions at that time included acyclovir, gabapentin, and Vicodin, 15 tablets. She has used all the Vicodin, and reports that the pain from the shingles is getting better, but her abdominal pain continues. She reports associated nausea with occasional vomiting the past 2 days. Her symptoms are worse when she eats. She denies fever or dysuria. She had a bowel movement yesterday. Review of Systems Constitutional: denies: Fever Nose: denies: Congestion Throat: denies: Sore throat Cardiac: denies: Chest pain / pressure Respiratory: denies: Dyspnea, Cough GI: reports: Abdominal Pain, Nausea, Vomiting. denies: Diarrhea : denies: Dysuria Skin: reports: Rash (Shingles.) Musculoskeletal: reports: Back pain (Chronically, ascribed to fibromyalgia.). 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5 mg Tablet] glipiZIDE [Glucotrol] 10 mg PO BID 03/17/13 07/03/17 Insulin Glargine [Lantus Solostar] 100 unit SQ BID 06/02/17 07/03/17 Ondansetron Odt [Zofran] 4 mg TL Q6H PRN #10 tablet 06/27/17 07/03/17 diazePAM [Valium] 5 mg PO TID PRN #15 tablet 06/27/17 07/03/17 Acyclovir 800 mg PO 5XD 10 Days tablet 07/03/17 Gabapentin 300 mg PO TID #20 capsule 07/03/17 HYDROcod/ACETAM 5/325 [[place] 5/325] 1 - 2 ea PO Q6H PRN #15 tablet 07/03/17 Methocarbamol 500 mg PO Q8H PRN 07/03/17 07/03/17 Bisacodyl [Dulcolax] 10 mg PO DAILY #15 tablet 07/09/17 HYDROcod/ACETAM 5/325 [[place] 5/325] 1 ea PO Q6H PRN #15 tablet 07/09/17 - Allergies Allergies/Adverse Reactions: Allergies Allergy/AdvReac Type Severity Reaction Status Date / Time codeine [Codeine] Allergy "gets Verified 07/03/17 13:31 crazy" phenazopyridine HCl * Allergy Itching Verified 07/03/17 13:31 [From Pyridium] - Living Situation Living Situation: reports: With spouse/s.o. - Social History Does the pt smoke?: No Smoking Status: Never smoker Does the pt drink ETOH?: No Does the pt have substance abuse?: No - Immunizations Immunizations are current?: Yes - POLST Patient has POLST: No PD ED PE NORMAL - Vitals Vital signs reviewed: Yes (initially hypertensive.) - General General: Alert and oriented X 3, Well developed/nourished, Other (overweight) - HEENT HEENT: Atraumatic, EOMI, Moist mucous membranes, Pharynx benign - Neck Neck: Supple, no meningeal sign, No adenopathy, No JVD - Cardiac Cardiac: RRR - Respiratory Respiratory: No respiratory distress, Clear bilaterally - Abdomen Abdomen: Soft, Other (Mild diffuse tenderness to palpation, without focal tenderness or rebound.) - Back Back: No CVA TTP - Derm Derm: No rash - Extremities Extremities: No edema, No calf tenderness / cord - Neuro Neuro: Alert and oriented X 3, No motor deficit, No sensory deficit Results - Vitals Vitals: Oxygen O2 Source Room air Oxygen Flow Rate 3 - EKG (time done) 11:32 Rate: Rate (enter#) (93) Rhythm: NSR Beggs: Normal Intervals: Normal OR Ischemia: Q waves (in leads III and aVF, consistent with old inferior KS.) Computer interpretation: Agree with computer - Labs Labs: Laboratory Tests 07/09/17 07/09/17 07/09/17 12:00 12:00 12:00 WBC 7.9 RBC 5.41 H Hgb 14.6 Hct 43.8 MCV 80.9 L MCH 26.9 L MCHC 33.2 RDW 14.7 Plt Count 204 MPV 8.4 Neut # 5.1 Lymph # 2.1 [place] # 0.4 Eos # 0.2 Baso # 0.1 Absolute Nucleated RBC 0.00 Nucleated RBC % 0.0 Sodium 138 Potassium 3.5 Chloride 100 L Carbon Dioxide 28 Anion Gap 10.0 BUN 11 Creatinine 1.0 Estimated GFR (MDRD) 56 L Glucose 135 H Lactic Acid 2.3 H Calcium 10.4 H Total Bilirubin 0.6 AST 37 ALT 40 Alkaline Phosphatase 61 Total Protein 8.4 H Albumin 4.3 Globulin 4.1 Albumin/Globulin Ratio 1.0 Lipase 23 Urine Color Urine Clarity Urine pH Ur Specific [place] Urine Protein Urine Glucose (UA) Urine Ketones Urine Occult Blood Urine Nitrite Urine Bilirubin Urine Urobilinogen Ur Leukocyte Esterase Ur Microscopic Review Urine Culture Comments 07/09/17 12:15 WBC RBC Hgb Hct MCV MCH MCHC RDW Plt Count MPV Neut # Lymph # [place] # Eos # Baso # Absolute Nucleated RBC Nucleated RBC % Sodium Potassium Chloride Carbon Dioxide Anion Gap BUN Creatinine Estimated GFR (MDRD) Glucose Lactic Acid Calcium Total Bilirubin AST ALT Alkaline Phosphatase Total Protein Albumin Globulin Albumin/Globulin Ratio Lipase Urine Color YELLOW Urine Clarity CLEAR Urine pH 6.0 Ur Specific [place] <=1.005 Urine Protein NEGATIVE Urine Glucose (UA) NEGATIVE Urine Ketones NEGATIVE Urine Occult Blood NEGATIVE Urine Nitrite NEGATIVE Urine Bilirubin NEGATIVE Urine Urobilinogen 0.2 (NORMAL) Ur Leukocyte Esterase NEGATIVE Ur Microscopic Review NOT INDICATED Urine Culture Comments NOT INDICATED - Rads (name of study) CT abd/pelvis Radiology: Prelim report reviewed, EMP read contemporaneously, See rad report ( No convincing acute abdominal pelvic findings. Scattered small central mesenteric lymph nodes may be reactive. Colonic fecal retention. Right renal cortical scarring compatible with remote infectious or vascular insult. Similar small left renal cortical hypodensity, statistically likely to represent simple cyst. As before, ultrasound could be performed for confirmation.) PD MEDICAL DECISION MAKING - ED course Complexity details: reviewed old records, reviewed results, re-evaluated patient , considered differential, d/w patient, d/w family ED course: The patient's presentation is significant for recurrent abdominal pain. CT scan reveals few scattered reactive mesenteric lymph nodes, and colonic fecal retention. CBC and chemistry panel are unremarkable, and urinalysis is negative. Her presentation does not suggest an acute abdomen, and there is no evidence to suggest diverticulitis, urinary tract infection, or bowel obstruction. Her shingles rash is evident, but is unlikely to be the cause of her abdominal symptoms. Treatment in the emergency department included administration of normal saline IV, ondansetron 4 mg IV, and hydromorphone 1 mg IV. Her symptoms improved with the above treatment, and she demonstrates ability to drink fluids without recurrent nausea. She is being discharged with prescription for Dulcolax and for Vicodin, 15 tablets. I discussed with her and her the results of the workup, treatment for constipation, outpatient follow-up, as well as potentially worrisome signs or symptoms that should prompt reevaluation in the emergency department. Departure - Departure Disposition: 01 Home, Self Care Clinical Impression: Mesenteric adenitis Abdominal pain Qualifiers: Abdominal location: generalized Qualified Code(s): R10.84 - Generalized abdominal pain Constipation Qualifiers: Constipation type: slow transit constipation Qualified Code(s): K59.01 - Slow transit constipation Herpes zoster Qualifiers: Herpes zoster complications: unspecified herpes zoster complication Qualified Code(s): B02.8 - Zoster with other complications Condition: Stable Instructions: ED Abdominal Pain Unkn Cause, ED Constipation Follow-Up: Barrington Robles MD [Primary Care Provider] - Prescriptions: Bisacodyl [Dulcolax] 10 mg PO DAILY #15 tablet HYDROcod/ACETAM 5/325 [[place] 5/325] 1 ea PO Q6H PRN #15 tablet PRN Reason: Pain Comments: Drink plenty of fluids. Take stool softener, including milk of magnesia, 30 mL daily. Eat fruits and drink fruit juices. Use Dulcolax daily as prescribed. You can use Vicodin as prescribed if needed for pain, but try to avoid using narcotic medication. Follow up with your primary physician within 1-2 weeks. Call to schedule appointment. Return to the emergency department if you develop increasing abdominal pain, persistent vomiting, or otherwise worsening symptoms. Discharge Date/Time: 07/09/17 17:20
[2017-07-09] MEDS ORDERED: IOPAMIDOL-300 100 ML VIAL ONE (15:28)
[2017-07-09] MEDS ORDERED: IOPAMIDOL-300 100 ML VIAL IVP ONE (15:37)
--- NOTE | 2017-07-09 16:07 | CT Report ---
EXAM: CT ABDOMEN AND PELVIS EXAM DATE: 07/09/2017 03:38 PM. CLINICAL HISTORY: Abdominal pain. COMPARISONS: CT abdomen/pelvis 06/25/2017. TECHNIQUE: Routine helical CT imaging was performed through the abdomen and pelvis. IV contrast: 100M L OF ISOVUE 300. Enteric contrast: No. Reconstructions: Coronal and sagittal. In accordance with CT protocol optimization, one or more of the following dose reduction techniques w ere utilized for this exam: automated exposure control, adjustment of mA and/or KV based on patient s ize, or use of iterative reconstructive technique. FINDINGS: Lung Bases: Mild bibasal atelectasis. No pericardial effusion. Liver: Normal. No masses. Gallbladder/Bile Ducts: Unremarkable. Spleen: Normal. Pancreas: Normal. Adrenal Glands: Normal. Kidneys: Similar left lower pole renal cortical hypodensity, statistically likely represent simple cy st however too small to characterize via attenuation analysis. There is similar right renal cortical scarring. No convincing solid mass. No hydronephrosis or hydroureter. Peritoneal Cavity/Bowel: No free fluid, free air or adenopathy. No masses or acute inflammatory proce ss. Above-average volume of stool in the colon. Apparent segmental narrowing of the sigmoid colon may relate to peristalsis. Appendix is not clearly visualized; no pericecal inflammatory changes are claudette dent. There are scattered small central mesenteric lymph nodes which may be reactive. Previously iden tified mild hazy mesenteric density has largely resolved. Pelvic Organs: Normal. The bladder and visualized pelvic organs are within normal limits. Vasculature: No aneurysms or other significant abnormality. Bones: No significant abnormality. Other: Similar small fat-containing umbilical hernia. IMPRESSION: 1. No convincing acute abdominopelvic findings. 2. Scattered small central mesenteric lymph nodes may be reactive. 3. Colonic fecal retention. 4. Right renal cortical scarring compatible with remote infectious or vascular insult. 5. Similar small left renal cortical hypodensity, statistically likely to represent simple cyst. As b efore, ultrasound could be performed for confirmation. 6. Other findings as noted above. [facility] Referring Provider Line: [phone] SITE ID: [id number]
[2017-07-09 19:27] VITALS: BP 144/68
== END 2017-07-09 17:20 | disposition home or self-care (01) ==
LOC: ED 11:14
DX: I88.0 Nonspecific mesenteric lymphadenitis (principal); B02.8 Zoster with other complications; K59.01 Slow transit constipation; R10.84 Generalized abdominal pain; I10 Essential (primary) hypertension; E78.00 Pure hypercholesterolemia, unspecified; E03.9 Hypothyroidism, unspecified; M19.90 Unspecified osteoarthritis, unspecified site; M79.7 Fibromyalgia; Z79.82 Long term (current) use of aspirin
CPT/HCPCS: 36415; 74177; 80053; 81003; 83605; 83690; 85025; 93005; 96361; 96374; 99284; J1170; Q9967; 81001; 87086

== ENCOUNTER 2017-07-20 18:43 | Emergency (ER) | payer MEDICAID ==
[2017-07-20 19:22] LABS: BILIRUBIN,URINE NEGATIVE (NEGATIVE); GLUCOSE, URINE (UA) NEGATIVE (NEGATIVE); KETONES,URINE (UA) NEGATIVE (NEGATIVE); LEUKOCYTE ESTERASE, URINE NEGATIVE (NEGATIVE); NITRITE,URINE NEGATIVE (NEGATIVE); OCCULT BLOOD,URINE NEGATIVE (NEGATIVE); PROTEIN,URINE NEGATIVE (NEGATIVE); UROBILINOGEN,URINE 0.2 (NORMAL) E.U./dL (NORMAL)
[2017-07-20 19:26] LABS: CLARITY,URINE CLEAR (CLEAR)
[2017-07-20] MEDS ORDERED: GABAPENTIN 100 MG CAPSULE PO STA (20:25)
[2017-07-20] MEDS ORDERED: ACETAMINOPHEN 500 MG TABLET PO STA (20:25)
--- NOTE | 2017-07-20 20:27 | ED Physician Documentation ---
PD HPI SKIN - Stated complaint Stated Complaint: SIDE/BACK PX - Chief complaint Chief Complaint: Abd Pain - History obtained from History obtained from: Patient, Family - History of Present Illness Timing - onset: How many weeks ago (1) Timing - details: Gradual onset, Still present Location: Abdomen, Back Quality / character: Painful, Burning, Crusted Associated symptoms: No: Fever Similar symptoms before: Work up / diagnostics, Treatment Recently seen: Clinic, Emergency Dept - Additional information Additional information: Patient is a 61 year old female with a history of diabetes and herpes zoster who is presenting to the emergency department for back pain. patient states that she was told that the rash would be painful but she didn't know if she had another urinary tract infection, and her pain medications were not working. patient states that her doctor is out of town for two weeks. Review of Systems Constitutional: denies: Fever, Chills Eyes: reports: Reviewed and negative Ears: reports: Reviewed and negative Nose: reports: Reviewed and negative Throat: reports: Reviewed and negative Cardiac: denies: Chest pain / pressure Respiratory: denies: Dyspnea, Cough, Wheezing GI: denies: Nausea, Vomiting : denies: Dysuria, Frequency Skin: reports: Rash, Lesions Musculoskeletal: reports: Back pain Neurologic: denies: Generalized weakness, Focal weakness, Numbness Immunocompromised: denies: Immunocompromised PD PAST MEDICAL HISTORY - Past Medical History Cardiovascular: Hypertension, High cholesterol Respiratory: Shortness of breath, Other Neuro: Headache/migraine Endocrine/Autoimmune: HyPOthyroidism Psych: Anxiety, Other Musculoskeletal: Osteoarthritis, Fibromyalgia, Chronic back pain, Other - Past Surgical History Past Surgical History: Yes Ortho: Knee replacement, Carpal Tunnel surgery, Other /[employer]: Hysterectomy, Oophrectomy - Present Medications Home Medications: Ambulatory Orders Medication Instructions Recorded Confirmed Amlodipine Besylate 10 mg PO DAILY 03/17/13 07/20/17 Aspirin [Aspir 81] 81 mg PO DAILY 03/17/13 07/20/17 Calcium Carbonate [Caltrate 600] 600 mg PO TID 03/17/13 07/20/17 Levothyroxine [Synthroid] 125 mcg PO QDAC 03/17/13 07/20/17 Lisinopril [Zestril] 60 mg PO DAILY 03/17/13 07/20/17 Simvastatin [Zocor] 20 mg PO DAILY 03/17/13 07/20/17 Solifenacin Succinate [Vesicare] 10 mg PO DAILY 03/17/13 07/20/17 Valsartan/Hydrochlorothiazide 1 each PO DAILY 03/17/13 07/20/17 [Diovan Hct 80-12.5 mg Tablet] glipiZIDE [Glucotrol] 10 mg PO BID 03/17/13 07/20/17 Insulin Glargine [Lantus Solostar] 100 unit SQ BID 06/02/17 07/20/17 Ondansetron Odt [Zofran] 4 mg TL Q6H PRN #10 tablet 06/27/17 07/20/17 diazePAM [Valium] 5 mg PO TID PRN #15 tablet 06/27/17 07/20/17 Acyclovir 800 mg PO 5XD 10 Days tablet 07/03/17 07/20/17 Gabapentin 300 mg PO TID #20 capsule 07/03/17 07/20/17 HYDROcod/ACETAM 5/325 [[place] 5/325] 1 - 2 ea PO Q6H PRN #15 tablet 07/03/17 Methocarbamol 500 mg PO Q8H PRN 07/03/17 07/20/17 Bisacodyl [Dulcolax] 10 mg PO DAILY #15 tablet 07/09/17 07/20/17 HYDROcod/ACETAM 5/325 [[place] 5/325] 1 ea PO Q6H PRN #15 tablet 07/09/17 07/20/17 Gabapentin 300 mg PO DAILY #30 capsule 07/20/17 - Allergies Allergies/Adverse Reactions: Allergies Allergy/AdvReac Type Severity Reaction Status Date / Time codeine [Codeine] Allergy "gets Verified 07/20/17 19:39 crazy" phenazopyridine HCl * Allergy Itching Verified 07/20/17 19:39 [From Pyridium] - Social History Does the pt smoke?: No Smoking Status: Never smoker Does the pt drink ETOH?: No Does the pt have substance abuse?: No - Immunizations Immunizations are current?: Yes - POLST Patient has POLST: No PD ED PE NORMAL - Vitals Vital signs reviewed: Yes - General General: Alert and oriented X 3, No acute distress - HEENT HEENT: Atraumatic, PERRL - Neck Neck: Supple, no meningeal sign, No JVD - Cardiac Cardiac: RRR, No murmur - Respiratory Respiratory: No respiratory distress - Abdomen Abdomen: Soft, Non distended - Neuro Neuro: Alert and oriented X 3, No motor deficit, No sensory deficit, Normal speech - Psych Psych: Normal mood PD ED PE EXPANDED - Derm Derm: Rash (rash consistent with herpes zoster on patient's back radiating to the front, no superimposed bacterial infection) Results - Vitals Vitals: Vital Signs - 24 hr 07/20/17 07/20/17 18:59 20:40 Temperature 36.2 C L Heart Rate 83 81 Respiratory 16 16 Rate Blood Pressure 161/79 H 157/79 H O2 Saturation 97 98 Oxygen O2 Source Room air - Labs Labs: Laboratory Tests 07/20/17 19:15 Urine Color YELLOW Urine Clarity CLEAR Urine pH 6.0 Ur Specific [place] 1.015 Urine Protein NEGATIVE Urine Glucose (UA) NEGATIVE Urine Ketones NEGATIVE Urine Occult Blood NEGATIVE Urine Nitrite NEGATIVE Urine Bilirubin NEGATIVE Urine Urobilinogen 0.2 (NORMAL) Ur Leukocyte Esterase NEGATIVE Ur Microscopic Review NOT INDICATED Urine Culture Comments NOT INDICATED PD MEDICAL DECISION MAKING - ED course Complexity details: reviewed old records, reviewed results, re-evaluated patient , considered differential, d/w patient, d/w family ED course: Patient was seen and examined at bedside. Patient's urine was collected and was within normal limits. patient's pain was likely secondary to the zoster. Patient was treated with gabapentin. Patient required no further work up and was stable for discharge with outpatient follow up. Departure - Departure Disposition: 01 Home, Self Care Clinical Impression: Herpes zoster Condition: Good Instructions: ED Shingles Follow-Up: Barrington Robles MD [Primary Care Provider] - Prescriptions: Gabapentin 300 mg PO DAILY #30 capsule Comments: Your symptoms today are being caused by herpes zoster (shingles). You can take the gabapentin and tylenol as needed for pain. This is something that will last indefinitely. You should not drink or take any other sedatives with the gabapentin. You should follow up with your doctor for further evaluation and care. Discharge Date/Time: 07/20/17 20:43
[2017-07-20 20:41] VITALS: BP 157/79
== END 2017-07-20 20:43 | disposition home or self-care (01) ==
LOC: ED 18:43
DX: B02.9 Zoster without complications (principal); E11.9 Type 2 diabetes mellitus without complications; Z79.82 Long term (current) use of aspirin; Z96.659 Presence of unspecified artificial knee joint
CPT/HCPCS: 81003; 99283; A9270; 81001; 87086

== ENCOUNTER 2017-08-31 08:14 | Outpatient (CLI) | payer MEDICAID ==
[2017-08-31 13:39] LABS: CALCIUM 9.7 mg/dL (8.5-10.3)
[2017-08-31 14:48] LABS: HB2 TOTAL 15.5 g/dL; HEMOGLOBIN A1C 0.72 g/dL; HEMOGLOBIN A1C % 6.4 % (4.6-6.2)
== END 2017-08-31 08:15 ==
LOC: LAB.N 08:14
PROVIDERS: ATTEND Family Medicine
DX: E11.9 Type 2 diabetes mellitus without complications (principal); Z79.4 Long term (current) use of insulin
CPT/HCPCS: 36415; 80048; 83036

== ENCOUNTER 2017-12-01 08:00 | Outpatient (CLI) | payer MEDICAID ==
[2017-12-01 19:12] LABS: HB2 TOTAL 15.3 g/dL; HEMOGLOBIN A1C 0.73 g/dL; HEMOGLOBIN A1C % 6.5 % (4.6-6.2)
[2017-12-01 19:15] LABS: CALCIUM 9.5 mg/dL (8.5-10.3); CREATININE 0.9 mg/dL (0.4-1.0)
== END 2017-12-01 08:01 ==
LOC: LAB.N 08:00
PROVIDERS: ATTEND Family Medicine
DX: E11.9 Type 2 diabetes mellitus without complications (principal); Z79.4 Long term (current) use of insulin
CPT/HCPCS: 36415; 80048; 83036

== ENCOUNTER 2018-03-08 08:33 | Outpatient (CLI) | payer MEDICAID ==
[2018-03-08 12:49] LABS: ALBUMIN 3.8 g/dL (3.2-5.5); ALBUMIN/GLOBULIN RATIO 1.1 (1.0-2.2); ALKALINE PHOSPHATASE 51 IU/L (42-121); ALT ALANINE AMINOTRANSFERASE 35 IU/L (10-60); AST ASPARTATE AMINOTRANSFERASE 28 IU/L (10-42); BILIRUBIN,TOTAL 0.8 mg/dL (0.2-1.0); BUN - BLOOD UREA NITROGEN 11 mg/dL (6-20); CALCIUM 9.7 mg/dL (8.5-10.3); CARBON DIOXIDE - CO2 27 mmol/L (21-32); CHLORIDE 105 mmol/L (101-111); CHOL/HDL RATIO 3.8 (<4.4); CHOLESTEROL 138 mg/dL; CREATININE 0.9 mg/dL (0.4-1.0); GFR - MDRD 63 (>89); GLUCOSE 125 mg/dL (70-100); HDL CHOLESTEROL 36 mg/dL; LDL CHOLESTEROL,CALCULATED 79 mg/dL; LDL/HDL RATIO 2.2 (<4.4); SODIUM 141 mmol/L (135-145); TOTAL PROTEIN 7.4 g/dL (6.7-8.2); VLDL CHOLESTEROL 23 mg/dL
[2018-03-08 13:02] LABS: THYROID STIMULATING HORMONE 0.18 uIU/mL (0.34-5.60)
[2018-03-08 13:04] LABS: FREE T4 (FREE THYROXINE) 1.15 ng/dL (0.58-1.64)
[2018-03-08 13:08] LABS: HB2 TOTAL 14.6 g/dL; HEMOGLOBIN A1C 0.69 g/dL; HEMOGLOBIN A1C % 6.5 % (4.6-6.2)
== END 2018-03-08 08:34 | disposition home or self-care (01) ==
LOC: LAB.N 08:33
PROVIDERS: ATTEND Family Medicine
DX: E78.5 Hyperlipidemia, unspecified (principal); E11.65 Type 2 diabetes mellitus with hyperglycemia; Z79.4 Long term (current) use of insulin; E03.9 Hypothyroidism, unspecified
CPT/HCPCS: 36415; 80053; 80061; 83036; 83721; 84439; 84443

== ENCOUNTER 2018-06-09 08:07 | Outpatient (CLI) | payer MEDICAID ==
[2018-06-09 14:15] LABS: CALCIUM 9.5 mg/dL (8.5-10.3); CREATININE 0.9 mg/dL (0.4-1.0)
[2018-06-09 14:28] LABS: THYROID STIMULATING HORMONE 0.65 uIU/mL (0.34-5.60)
[2018-06-09 14:30] LABS: FREE T4 (FREE THYROXINE) 1.08 ng/dL (0.58-1.64)
[2018-06-09 15:45] LABS: HB2 TOTAL 14.8 g/dL; HEMOGLOBIN A1C 0.66 g/dL; HEMOGLOBIN A1C % 6.2 % (4.6-6.2)
== END 2018-06-09 23:59 | disposition home or self-care (01) ==
LOC: LAB.N 08:07
PROVIDERS: ATTEND Family Medicine
DX: E11.9 Type 2 diabetes mellitus without complications (principal); E03.9 Hypothyroidism, unspecified
CPT/HCPCS: 36415; 80048; 83036; 84439; 84443

== ENCOUNTER 2018-08-02 10:19 | Outpatient (CLI) | payer MEDICAID ==
--- NOTE | 2018-08-03 10:19 | DEXA Report ---
Reason: BONE DISORDER Procedure Date: 08/02/2018 Accession Number: [id number] / [id number] Procedure: DEX - Dexa Spine and/or Hip CPT Code: FULL RESULT: EXAM: Dexa Spine and/or Hip DATE: 08/02/2018 10:49 AM CLINICAL HISTORY: BONE DISORDER TECHNIQUE: Dual energy x-ray absorptiometry (DXA) was performed on a [employer] System. Regions measured are the AP Spine, femoral neck, and if needed forearm. COMPARISON: None. In accordance with the International Society for Clinical Densitometry (ISCD) guidelines, data from previous exams may be reanalyzed using current recommendations and techniques. This is done to allow a more accurate basis for comparison with the current study. FINDINGS: The data for the lumbar spine is as follows: BMD (g/cm/cm) T-SCORE Z-SCORE REGION L1 0.951 -1.5 -1.2 L2 1.165 -0.3 0.0 L3 1.177 -0.2 0.1 L4 1.124 -0.6 -0.3 TOTAL 1.109 -0.6 -0.3 NOTE: All evaluable vertebrae are used for classification The data for the hip is as follows: BMD (g/cm/cm) T-SCORE Z-SCORE REGION Neck 0.875 -1.2 -0.5 TOTAL 0.988 -0.2 0.1 NOTE: The femoral neck or total proximal femur, whichever is lowest, is used for classification. IMPRESSION: THE WHO CLASSIFICATION BASED ON THE INTERNATIONAL REFERENCE STANDARD IS OSTEOPENIA. THE FRACTURE RISK IS INCREASED. RECOMMENDATION: Patients with diagnosis of osteoporosis or osteopenia should have regular bone mineral density assessment. For those eligible for Medicare, routine testing is allowed once every 2 years. Testing frequency can be increased for patients who have rapidly progressing disease or for those who are receiving medical therapy to restore bone mass. COMMENT: World Health Organization (WHO) definitions for osteoporosis and osteopenia: NORMAL BMD: T-score at -1.0 or higher, fracture risk is low OSTEOPENIA BMD: T-score between -1.0 and -2.5, fracture risk is increased. OSTEOPOROSIS BMD: T-score at -2.5 or lower, fracture risk is high. National Osteoporosis Foundation recommends: 1. Obtain adequate dietary calcium (at least 1200 mg per day) and vitamin D (400-800 international units per day). 2. Participate, as appropriate, in regular weightbearing and muscle-strengthening exercise. 3. Avoid tobacco use and reduce alcohol and caffeine intake. 4. For more detailed information see the website at www.NOF.org.
== END 2018-08-02 10:20 | disposition home or self-care (01) ==
LOC: DI 10:19
PROVIDERS: ATTEND Nurse Practitioner
DX: M85.88 Other specified disorders of bone density and structure, other site (principal)
CPT/HCPCS: 77080

== ENCOUNTER 2018-09-16 08:51 | Outpatient (CLI) | payer MEDICAID ==
--- NOTE | 2018-09-16 09:33 | XRAY Report ---
Reason: HIP JOINT PAINFUL ON MOVEMENT/KNEE JOINT PAIN,LEFT Procedure Date: 09/16/2018 Accession Number: [id number] / [id number] Procedure: XRN - Knee 3 View LT CPT Code: FULL RESULT: EXAM: LEFT KNEE RADIOGRAPHY EXAM DATE: 09/16/2018 09:14 AM. CLINICAL HISTORY: Hip joint painful on movement/knee joint pain, left. COMPARISON: HIP BILAT 09/16/2018 9:08 AM. TECHNIQUE: 3 views. FINDINGS: Bones: No acute fracture appreciated. Joints: Mild degenerative spurring of the medial tibial spine and mild to moderate spurring superior pole of the patella. No significant effusion. Soft Tissues: Normal. No soft tissue swelling. IMPRESSION: Mild degenerative changes. No acute fracture appreciated. RADIA
--- NOTE | 2018-09-16 09:37 | XRAY Report ---
Reason: HIP JOINT PAINFUL ON MOVEMENT/KNEE JOINT PAIN,LEFT Procedure Date: 09/16/2018 Accession Number: [id number] / [id number] Procedure: XRN - Hips 2V BILAT CPT Code: FULL RESULT: EXAM: BILATERAL HIP RADIOGRAPHY EXAM DATE: 09/16/2018 09:14 AM. CLINICAL HISTORY: Hip joint painful on movement/knee joint pain, left. COMPARISON: LUMBAR SPINE 2 VIEW 11/12/2016 11:32 AM. TECHNIQUE: 2 views each. FINDINGS: Bones: Normal. No fractures or bone lesion. Right Hip: Normal. No dislocation. The hip joint space is preserved. Left Hip: Normal. No dislocation. The hip joint space is preserved. Soft Tissues: Normal. No soft tissue swelling. IMPRESSION: Normal bilateral hip radiography. RADIA
== END 2018-09-16 08:52 | disposition home or self-care (01) ==
LOC: DI.N 08:51
PROVIDERS: ATTEND Nurse Practitioner
DX: M25.562 Pain in left knee (principal); M25.559 Pain in unspecified hip
CPT/HCPCS: 73521

== ENCOUNTER 2019-01-17 10:05 | Outpatient (CLI) | payer MEDICAID ==
--- NOTE | 2019-01-17 10:59 | CONSULTATION NOTE ---
Information from patient questionnaire entered by Nathaly Haas. I have reviewed and concur with the information entered by Nathaly Haas. This document represents the service I personally performed and the decisions made by me, Belgica Figueroa MD, [facility]. - History of Present Illness HPI: HPI: Ms. Breen returned today for follow up of BiPAP therapy. She was diagnosed to have severe obstructive sleep apnea-hypopnea syndrome about 15 years ago in [place], [place]. The sleep study report is not available. The patient wears with a nasal mask. She gets her supplies from [employer] but has not received anything for a year now. She reports using the device nightly and all through the night. The compliance data show usage in 180 out of the past 180 nights, averaging 11.7 hours a night. The residual AHI is 0.9 and average time in large leak per day is 2.5 minutes. She complained of no particular problem with the device such as soreness on the face, dry nose, epistaxis, nasal congestion or headache. She thinks that the pressure of 15/8 cmH2O is comfortable (was ordered to be lowered to 13/6 cmH2O 3 years ago but was never done). On the BiPAP therapy she notices improvement in her sleep quality, and that she wakes up feeling fresher in the morning and more awake/alert during the day. The Jackson Sleepiness Scale score 14. Equipment obtained from: [facility] [employer] Mask style: Nasal pillows - Subjective Initial Jackson Sleepiness Scale score: 14 Current [place] Sleepiness Scale score: 14 - Review of Systems Review of systems same as previous: Yes Weight loss over past 5 years: 67 Cardiovascular: reports: high blood pressure, leg or foot swelling, have to sleep sitting up Respiratory: reports: shortness of breath Gastrointestinal: reports: heartburn, nausea, vomitting, diarrhea, abdominal pain, other: (IBS) Urinary: reports: incontinence, frequency, urgency Neurological: reports: headaches, disorientation Psychiatric: reports: anxiety Ear/Nose/Throat: reports: dry mouth/throat, tonsillectomy Endocrine: reports: thyroid disease, sluggishness, too hot or cold, excessive thirst Musculoskeletal: reports: joint pain, neck pain, back pain, joint swelling, muscle pain or cramping, mobility problems - Allergies/Medications Allergies codeine [Codeine] Allergy (Verified 01/16/18 19:39) "gets crazy" phenazopyridine HCl * [From Pyridium] Allergy (Verified 07/20/17 19:39) Itching Home Medications Albuterol Sulfate [Proair Hfa Inhaler] 2 puffs ORAL Q4HR PRN 01/09/19 [History Confirmed 01/09/19] Amitriptyline HCl 25 mg ORAL DAILY PM 01/09/19 [History Confirmed 01/09/19] Cholecalciferol (Vitamin D3) [Vitamin D] 2,000 unit PO DAILY 01/09/19 [History Confirmed 01/09/19] Cranberry Fruit Extract [Cranberry] 500 mg PO DAILY 01/09/19 [History Confirmed 01/09/19] Diclofenac Sodium [Voltaren] 100 gm TP PRN PRN 01/09/19 [History Confirmed 01/09/19] Duloxetine HCl 2 - 30 cap PO DAILY 01/09/19 [History Confirmed 01/09/19] Estrogens, Conjugated Cream [Premarin Cream] 0.5 applic [id number] OAW 01/09/19 [History Confirmed 01/09/19] Insulin Glargine [Lantus Solostar] 15 unit SQ BID 01/09/19 [History Confirmed 01/09/19] Ipratropium/Albuterol [Duoneb] 3 ml INH Q4HR PRN 01/09/19 [History Confirmed 01/09/19] Lidocaine Ointment 5% [Xylocaine Ointment 5%] 36 applic TOP BID 01/09/19 [History Confirmed 01/09/19] Losartan Potassium 100 mg PO DAILY 01/09/19 [History Confirmed 01/09/19] Metformin HCl 1,000 mg ORAL BID 01/09/19 [History Confirmed 01/09/19] Montelukast [Singulair] 10 mg ORAL DAILY 01/09/19 [History Confirmed 01/09/19] Omeprazole 20 mg PO BID 01/09/19 [History Confirmed 01/09/19] Polyethylene Glycol 3350 [Miralax] 17 gm PO DAILY 01/09/19 [History Confirmed 01/09/19] Pregabalin [Lyrica] 50 mg PO TID 01/09/19 [History Confirmed 01/09/19] Allergies and home medications reviewed: Yes - Physical Examination Weight (kg): 113.398 kg - Impression Obstructive Sleep Apnea-Hypopnea Syndrome, severe, with the patient doing well on BiPAP therapy. She has excellent compliance and significant clinical improvement. The current pressure appears effective and comfortable. Overall, she is very satisfied with treatment and plans to continue with it long-term. Because the BiPAP is now older than the useful life of 5 years, I will order the patient a new one. However, we first need to repeat the diagnostic in- laboratory polysomnography to document that she actually has obstructive sleep apnea-hypopnea. - Plan Plan: 1. Continue BiPAP set at 15/8 cmH2O. Because her sleep-disordered breathing is severe, she does not have to stop using her BiPAP one night prior to the study. 2. Try to lose more weight 3. Schedule an in-laboratory polysomnography and return for follow up afterward. I spent 100% of this 15 minute visit face to face with the patient with greater than 50% of this was spent time counseling the patient and coordination of care.
== END 2019-01-17 10:06 | disposition home or self-care (01) ==
LOC: SC 10:05
PROVIDERS: ATTEND Internal Medicine Pulmonary Disease
DX: G47.33 Obstructive sleep apnea (adult) (pediatric) (principal)
CPT/HCPCS: 99212; 99213

== ENCOUNTER 2019-01-25 19:36 | Outpatient (CLI) | payer MEDICAID | END 2019-01-25 19:37 | disposition home or self-care (01) | LOC: SC 19:36 | PROVIDERS: ATTEND Internal Medicine Pulmonary Disease | DX: G47.33 Obstructive sleep apnea (adult) (pediatric) (principal); G47.61 Periodic limb movement disorder; E66.01 Morbid (severe) obesity due to excess calories; Z68.43 Body mass index [BMI] 50.0-59.9, adult | CPT/HCPCS: 95810 ==

== ENCOUNTER 2019-02-13 09:46 | Outpatient (CLI) | payer MEDICAID ==
--- NOTE | 2019-02-13 12:06 | SLEEP CARE CONSULTATION ---
Information from patient questionnaire entered by Terra Rivera. I have reviewed and concur with the information entered by Terra Rivera. This document represents the service I personally performed and the decisions made by me, Belgica Figueroa MD, [facility]. History of Present Illness Reason for CPAP/BiPAP follow up: with sleep study Equipment type: BiPAP Equipment obtained from: [employer] and Where: 2018 [facility] additional information: HPI: Ms. Astudillo returned for follow up of the sleep study she had on 01/25/2019. The polysomnography showed that the patient had reduced sleep efficiency due to frequent and prolonged awakenings after the sleep onset. Despite moderate sleep fragmentation, the sleep architecture was relatively normal. Respiratory monitoring showed mild obstructive sleep apnea-hypopnea (AHI = 14.8) associated with frequent arousals, oxyhemoglobin desaturation and moderate hypoxia (elaine oxygen saturation of 76%). Baseline oxygen saturation was normal. The patient only slept supine during this study (supine AHI = 14.8; non-supine = 0.00). Snore was light in intensity. There was moderate periodic leg movement of sleep contributing to the sleep fragmentation. Cardiac rhythm was normal sinus rhythm without significant arrhythmia. No abnormal behavior (parasomnia) observed during the night. The patient was informed of these findings. I explained to her the pathophysiology behind obstructive sleep apnea. We then spent quite a bit of time discussing different treatment options. For mild obstructive sleep apnea, surgery and oral appliance are alternatives to nasal CPAP therapy but in moderate or severe cases, blood pressure/BiPAP is the most effective and reliable treatment. After some discussion, she opted to continue with the BiPAP therapy. Her BiPAP is currently set at 15/8 cmH2O. She uses it every night and all night. Subjective Patient concerns: reports: dry mouth, nose, throat Initial [place] Sleepiness Scale score: 14 Current [place] Sleepiness Scale score: 14 Allergies and Home Medications Home medication list reviewed: Yes Review of Systems Review of systems same as previous: Yes Impression and Plan IMPRESSION: 1. Obstructive Sleep Apnea-Hypopnea Syndrome, mild, associated with moderate hypoxemia and sleep fragmentation. The patient has had good BiPAP compliance all along. The current pressure setting appears effective and comfortable. Because the BiPAP is now older than the useful life of 5 years, I will order the patient a new one and set it slightly lower at 13/7 cmH2O because the residual AHI is very low. PLAN: 1. Prescription made for a BiPAP with heated humidifier and related supplies. 2. Attempt to lose weight. 3. Return for follow up after one month on the new machine. I spent 100% of this 15 minute visit face to face with the patient with greater than 50% of this was spent time counseling the patient and coordination of care.
== END 2019-02-13 09:47 | disposition home or self-care (01) ==
LOC: SC 09:46
PROVIDERS: ATTEND Internal Medicine Pulmonary Disease
DX: G47.33 Obstructive sleep apnea (adult) (pediatric) (principal)
CPT/HCPCS: 99212; 99213

== ENCOUNTER 2019-04-28 10:03 | Outpatient (CLI) | payer MEDICAID ==
[2019-04-28 12:32] LABS: ALBUMIN 3.5 g/dL (3.2-5.5); ALKALINE PHOSPHATASE 56 IU/L (42-121); ALT ALANINE AMINOTRANSFERASE 37 IU/L (10-60); AST ASPARTATE AMINOTRANSFERASE 25 IU/L (10-42); BILIRUBIN,TOTAL 0.9 mg/dL (0.2-1.0); BUN - BLOOD UREA NITROGEN 14 mg/dL (6-20); CALCIUM 9.8 mg/dL (8.5-10.3); CARBON DIOXIDE - CO2 26 mmol/L (21-32); CHLORIDE 103 mmol/L (101-111); CHOL/HDL RATIO 6.3 (<4.4); CHOLESTEROL 222 mg/dL; CREATININE 1.1 mg/dL (0.4-1.0); GFR - MDRD 50 (>89); GLUCOSE 122 mg/dL (70-100); HDL CHOLESTEROL 35 mg/dL; LDL CHOLESTEROL,CALCULATED 153 mg/dL; LDL/HDL RATIO 4.4 (<4.4); SODIUM 139 mmol/L (135-145); VLDL CHOLESTEROL 34 mg/dL
[2019-04-28 13:20] LABS: HEMOGLOBIN A1C 0.63 g/dL; HEMOGLOBIN A1C % 6.3 % (4.6-6.2)
== END 2019-04-28 23:59 | disposition home or self-care (01) ==
LOC: LAB.WCP 10:03
PROVIDERS: ATTEND Family Medicine
DX: E11.41 Type 2 diabetes mellitus with diabetic mononeuropathy (principal)
CPT/HCPCS: 36415; 80053; 80061; 83036; 83721

== ENCOUNTER 2019-05-01 14:30 | Outpatient (CLI) | payer MEDICAID ==
--- NOTE | 2019-05-01 16:40 | SLEEP CARE CONSULTATION ---
Information from patient questionnaire entered by Terra Rivera. I have reviewed and concur with the information entered by Terra Rivera. This document represents the service I personally performed and the decisions made by me, Belgica Figueroa MD, [facility]. History of Present Illness Previous diagnosis: Mild, Obstructive Sleep Apnea-Hypopnea Syndrome AHI: 14.8 Reason for CPAP/BiPAP follow up: first compliance Equipment type: BiPAP Equipment obtained from: [employer] Prior sleep studies: Yes HPI additional information: HPI: Ms. Astudillo returned today for follow up of BiPAP therapy. She was diagnosed to have mild obstructive sleep apnea-hypopnea syndrome. She recently acquired a new BiPAP from [employer]. The patient wears with a [employer]pir[employer]ourWear nasal cushion mask. She reports using the device nightly and all through the night. She complained of no particular problem with the device such as soreness on the face, dry nose, epistaxis, nasal congestion or headache. She thinks that the pressure of 13/7 cmH2O is comfortable. On the BiPAP therapy she notices improvement in her sleep quality, and that she wakes up feeling fresher in the morning and more awake/alert during the day. The [place] Sleepiness Scale score 15. The average residual AHI is 0.9; and air leak, 1.6 minutes. She also uses oxygen at night and her concentrator came from [employer]. CPAP Compliance Data - Data Reviewed with Patient Average duration of nightly device use: 11h 45m Compliance rate %: 100 Current pressure setting (cmH2O): 13/7 Humidity settin Heated hose settin Subjective Patient concerns: reports: dry mouth, nose, throat Current pressure setting perceived as: comfortable Initial [place] Sleepiness Scale score: 14 Current [place] Sleepiness Scale score: 15 Allergies and Home Medications Drug allergies reviewed: Yes Home medication list reviewed: Yes Review of Systems Review of systems same as previous: Yes Physical Exam Weight: 257 lb Weight change since last visit: - 37 Impression and Plan IMPRESSION: 1. Obstructive Sleep Apnea-Hypopnea Syndrome, mild, with the patient doing well on BiPAP therapy. She has excellent compliance and significant clinical improvement. The current pressure appears effective and comfortable. Overall, she is very satisfied with treatment and plans to continue with it long-term. Because she has lost a lot of weight and her baseline oxygen saturation was normal during the diagnostic in-laboratory polysomnography this summer, I would like to repeat the BiPAP titration study to see if she still needs oxygen supplement at night. PLAN: 1. Continue with BiPAP set at 13/7 cmH2O. 2. Repeat BiPAP titration to requalify the patient for home oxygen therapy at night. 3. Return for follow up after the sleep study. I spent 100% of this 20 minute visit face to face with the patient with greater than 50% of this was spent time counseling the patient and coordination of care.
== END 2019-05-01 14:31 | disposition home or self-care (01) ==
LOC: SC 14:30
PROVIDERS: ATTEND Internal Medicine Pulmonary Disease
DX: G47.33 Obstructive sleep apnea (adult) (pediatric) (principal)
CPT/HCPCS: 99212; 99213

== ENCOUNTER 2019-05-24 19:32 | Outpatient (CLI) | payer MEDICAID | END 2019-05-24 19:33 | disposition home or self-care (01) | LOC: SC 19:32 | PROVIDERS: ATTEND Internal Medicine Pulmonary Disease | DX: G47.33 Obstructive sleep apnea (adult) (pediatric) (principal); R09.02 Hypoxemia; G47.61 Periodic limb movement disorder | CPT/HCPCS: 95811 ==

== ENCOUNTER 2019-06-12 13:40 | Outpatient (CLI) | payer MEDICAID ==
--- NOTE | 2019-06-12 14:06 | SLEEP CARE CONSULTATION ---
Information from patient questionnaire entered by Terra Rivera. I have reviewed and concur with the information entered by Terra Rivera. This document represents the service I personally performed and the decisions made by me, Belgica Figueroa MD, [facility]. History of Present Illness Previous diagnosis: Mild, Obstructive Sleep Apnea-Hypopnea Syndrome AHI: 14.8 Reason for follow up: with manual titration Equipment type: BiPAP Equipment obtained from: [employer] Prior sleep studies: Yes HPI additional information: HPI: Ms. Astudillo returns for follow up of the sleep study (a manual CPAP titration study) she had on 05-24-19. The polysomnography showed that BiPAP was initiated at 13/7 cmH2O and titrated up to 16/10 cmH2O. BiPAP at 13/7 cmH2O appeared to be optimal (AHI of 2.6 per hour on the pressure). There was supine REM sleep on the pressure. Oxygen saturation was mildly low due to low baseline oxygen saturation during REM sleep. The patient appeared to have tolerated positive airway pressure therapy well. The patients sleep efficiency was slightly reduced due to a prolonged awakening in the middle of the night. Except for mild sleep fragmentation, the sleep architecture was normal. There was moderate periodic leg movement of sleep not associated with sleep fragmentation. Cardiac rhythm was normal sinus rhythm without significant arrhythmia. No abnor mal behavior (parasomnia) observed during the night. The patient was informed of these findings. I explained to her that the current pressure is effective. Presently her BiPAP is set at 13/7 cmH2O. She told me that she has been using the device every night and pretty much all nightlong. She continues to have significant improvement in her original symptoms. She bleeds oxygen through her BiPAP at 2 L/minute. The oxygen concentrator came from [employer]. [facility] CPAP Compliance Data - Data Reviewed with Patient Average duration of nightly device use: 11.45 Compliance rate %: 96.7 Current pressure setting (cmH2O): 13/7 Humidity settin Heated hose settin Average residual AHI: 0.9 Average large leak: 1 MIN 39 SEC Subjective Patient concerns: reports: air blowing in eyes, dry mouth, nose, throat Initial Caldwell Sleepiness Scale score: 14 Current Caldwell Sleepiness Scale score: 6 Allergies and Home Medications Drug allergies reviewed: Yes Home medication list reviewed: Yes Review of Systems Review of systems same as previous: Yes Physical Exam O2 Saturation: 95 (on room air) Weight: 263 lb Weight change since last visit: +6 Impression and Plan IMPRESSION: 1. Obstructive Sleep Apnea-Hypopnea Syndrome, mild (AHI was 14.8), adequately controlled with BiPAP of 13/7 cmH2O. So far, she has been doing well on the treatment and continues to have good treatment compliance. Based on the titration study, I will leave the BiPAP at 13/7 cmH2O. I will order her oxygen therapy at night through the BiPAP at 2 L/minute. PLAN: 1. Leave BiPAP at 13/7 cmH2O. 2. Prescription made for home oxygen therapy at night to be bled in through the BiPAP at 2 L/minute. 3. Try to lose weight. 4. Return for follow up in one year. I spent 100% of this 20 minute visit face to face with the patient with greater than 50% of this was spent time counseling the patient and coordination of care.
== END 2019-06-12 13:41 | disposition home or self-care (01) ==
LOC: SC 13:40
PROVIDERS: ATTEND Internal Medicine Pulmonary Disease
DX: G47.33 Obstructive sleep apnea (adult) (pediatric) (principal)
CPT/HCPCS: 99212; 99213

== ENCOUNTER 2019-06-14 06:12 | Outpatient (CLI) | payer MEDICAID ==
[2019-06-14] MEDS ORDERED: IOVERSOL 320 100 ML VIAL IVP ONE (06:17)
[2019-06-14] MEDS ORDERED: IOVERSOL 320 50 ML VIAL ONE (06:18)
[2019-06-14 07:03] LABS: CREATININE 1.1 mg/dL (0.4-1.0)
--- NOTE | 2019-06-14 13:05 | CT Report ---
Reason: ABD PAIN, LLQ Procedure Date: 06/14/2019 Accession Number: [id number] / [id number] Procedure: CT - Abdomen/Pelvis W CPT Code: Final Report FULL RESULT: EXAM: CT ABDOMEN AND PELVIS EXAM DATE: 06/14/2019 07:54 AM. CLINICAL HISTORY: Abdominal pain, left lower quadrant. COMPARISONS: ABDOMEN/PELVIS W/ 07/09/2017 3:34 PM. TECHNIQUE: Routine helical CT imaging was performed through the abdomen and pelvis. IV contrast: Optiray 320 100 mL. Enteric contrast: Yes. Reconstructions: Coronal and sagittal. In accordance with CT protocol optimization, one or more of the following dose reduction techniques were utilized for this exam: automated exposure control, adjustment of mA and/or KV based on patient size, or use of iterative reconstructive technique. FINDINGS: Lung Bases: Unremarkable. Liver: Normal. No masses. Gallbladder/Bile Ducts: Unremarkable. Spleen: Normal. Pancreas: Normal. Adrenal Glands: Normal. Kidneys: While there is no significant pelviceal dilation on the right there is marked megaureter on the right which culminates in a distal ureteral stone just proximal to the ureterovesicular junction, approximately 2 mm. Mild periureteral fat stranding with no right perinephric fat stranding. No left hydronephrosis. There is a 6 mm nonobstructing right lower pole calculus. There is cortical thinning right greater than left. Peritoneal Cavity/Bowel: There is at least moderate colonic stool burden. There is no bowel obstruction. There is no free fluid or free air. A few prominent retroperitoneal lymph nodes do not meet size criteria. Surgical changes are seen in the peritoneal cavity and left lower quadrant. The appendix is well visualized and normal. Pelvic Organs: The patient is status post hysterectomy. Vasculature: No aneurysms or other significant abnormality. Bones: No significant abnormality. Other: None. IMPRESSION: Right megaureter with small distal ureteral calculus without significant right perinephric fat stranding and evidence of partial cortical atrophy in the right kidney. Likely constipation. RADIA The call report notification system was initiated by Dr. Javier Navarro at 01:01 PM on 06/14/2019. The above call report findings were discussed with Rell Serna by Dr. Javier Navarro at 01:10 PM on 06/14/2019.
[2019-06-14] MEDS: IOVERSOL 320 50 ML VIAL PO ONE (14:15)
[2019-06-14] MEDS: IOVERSOL 320 100 ML VIAL IVP ONE (14:15)
== END 2019-06-14 06:13 | disposition home or self-care (01) ==
LOC: DI 06:12
PROVIDERS: ATTEND Family Medicine
DX: N28.82 Megaloureter (principal); N20.1 Calculus of ureter; R10.32 Left lower quadrant pain
CPT/HCPCS: 36415; 74177; 82565; Q9967

== ENCOUNTER 2019-09-25 08:00 | Outpatient (CLI) | payer MEDICAID, MEDICARE ==
[2019-09-25 18:51] LABS: BASOPHILS # (AUTO) 0.1 10^3/uL (0.0-0.1); BASOPHILS % (AUTO) 1.2 %; EOSINOPHILS # (AUTO) 0.2 10^3/uL (0.0-0.7); EOSINOPHILS % (AUTO) 2.2 %; HGB - HEMOGLOBIN 14.7 g/dL (12.0-16.0); LYMPHOCYTES # (AUTO) 2.2 10^3/uL (1.5-3.5); LYMPHOCYTES % (AUTO) 24.1 %; MEAN CORPUSCULAR HEMOGLOBIN 25.6 pg (27.0-31.0); MEAN CORPUSCULAR HGB CONC 30.7 g/dL (32.0-36.0); MEAN CORPUSCULAR VOLUME 83.3 fL (81.0-99.0); MEAN PLATELET VOLUME 10.9 fL (7.9-10.8); MONOCYTES # (AUTO) 0.5 10^3/uL (0.0-1.0); MONOCYTES % (AUTO) 5.7 %; NEUTROPHILS # (AUTO) 5.9 10^3/uL (1.5-6.6); NEUTROPHILS % (AUTO) 66.4 %; PLT - PLATELET COUNT 270 10^3/uL (130-450); RED BLOOD COUNT 5.75 10^6/uL (4.20-5.40); RED CELL DISTRIBUTION WIDTH 14.8 % (12.0-15.0)
[2019-09-25 19:22] LABS: ALBUMIN 4.2 g/dL (3.2-5.5); ALBUMIN/GLOBULIN RATIO 1.2 (1.0-2.2); ALKALINE PHOSPHATASE 55 IU/L (42-121); ALT ALANINE AMINOTRANSFERASE 38 IU/L (10-60); AST ASPARTATE AMINOTRANSFERASE 34 IU/L (10-42); BILIRUBIN,TOTAL 0.7 mg/dL (0.2-1.0); BUN - BLOOD UREA NITROGEN 13 mg/dL (6-20); CALCIUM 9.7 mg/dL (8.5-10.3); CARBON DIOXIDE - CO2 22 mmol/L (21-32); CHLORIDE 100 mmol/L (101-111); CHOL/HDL RATIO 5.7 (<4.4); CHOLESTEROL 239 mg/dL; CREATININE 1.1 mg/dL (0.4-1.0); GLUCOSE 202 mg/dL (70-100); HDL CHOLESTEROL 42 mg/dL; LDL CHOLESTEROL,CALCULATED 163 mg/dL; LDL/HDL RATIO 3.9 (<4.4); SODIUM 137 mmol/L (135-145); TOTAL PROTEIN 7.7 g/dL (6.7-8.2); VLDL CHOLESTEROL 34 mg/dL
[2019-09-25 21:40] LABS: HB2 TOTAL 15.2 g/dL; HEMOGLOBIN A1C 0.68 g/dL; HEMOGLOBIN A1C % 6.2 % (4.6-6.2)
== END 2019-09-25 23:59 | disposition home or self-care (01) ==
LOC: LAB.WCP 08:00
PROVIDERS: ATTEND Family Medicine
DX: E11.41 Type 2 diabetes mellitus with diabetic mononeuropathy (principal); E05.00 Thyrotoxicosis with diffuse goiter without thyrotoxic crisis or storm
CPT/HCPCS: 36415; 80053; 80061; 83036; 83721; 84439; 85025

== ENCOUNTER 2019-11-14 15:32 | Outpatient (CLI) | payer MEDICARE ==
--- NOTE | 2019-11-14 12:19 | SLEEP CARE CONSULTATION ---
Information from patient questionnaire entered by Nathaly Haas. I have reviewed and concur with the information entered by Nathaly Haas. This document represents the service I personally performed and the decisions made by me, Belgica Figueroa MD, [facility]. History of Present Illness Service Date and Time: 11/14/2019 1000 Previous diagnosis: Mild, Obstructive Sleep Apnea-Hypopnea Syndrome AHI: 14.8 (in 2019) Reason for follow up: first compliance after device update Equipment type: BiPAP Equipment obtained from: [facility] additional information: HPI: Ms. Astudillo was called today to follow up on the BiPAP + oxygen therapy. She was diagnosed to have mild obstructive sleep apnea-hypopnea syndrome and hypoxemia. The patient wears with a [employer]iver[employer]x-Pikhub nasal mask. She reports using the device nightly and all through the night. The compliance data show usage in 30 out of the past 30 nights, averaging 11.5 hours a night. The > 4 hour compliance rate for the past 30 days is 100%. She complained of dry mouth but no particular problem with the device such as soreness on the face, dry nose, epistaxis, nasal congestion or headache. She thinks that the pressure at 13/7 cmH2O is comfortable. On the BiPAP therapy she notices improvement in her sleep quality, and that she wakes up feeling fresher in the morning and more awake/alert during the day. The Boyd Sleepiness Scale score 14. The average residual AHI is 1.0: and air leak, average time in large leak per day is 4 pako lazara. CPAP Compliance Data - Data Reviewed with Patient Average duration of nightly device use: 11.45 Compliance rate %: 100 Current pressure setting (cmH2O): 13/7 Humidity settin Heated hose settin Average residual AHI: 0.9 Average large leak: 4 min 12 sec Subjective Initial Boyd Sleepiness Scale score: 14 Allergies and Home Medications Drug allergies reviewed: Yes Home medication list reviewed: Yes Review of Systems Review of systems same as previous: Yes Physical Exam Height: 5 ft 4 in Impression and Plan IMPRESSION: 1. Obstructive Sleep Apnea-Hypopnea Syndrome, mild, with the patient doing well on BiPAP + oxygen therapy. She has excellent compliance and significant clinical improvement. The current pressure appears effective and comfortable. Her mask fits well. Overall, she is very satisfied with treatment and plans to continue with it long-term. No adjustment is necessary today. PLAN: 1. Continue with BiPAP set at 13/7 cmH2O + oxygen 2 L/minute. 2. Try to lose weight 3. Return in one year for follow up or earlier if there is any problem with the treatment. Visit Type: Telehealth Video Video Type: [employer] Patient Location: Home Location of Provider: Home Patient agrees and consents to this telehealth visit type: Yes Patient agrees to have their insurance billed: Yes Time Spent with Patient (minutes): 15 Provider Statement: I spent 100% of the Telehealth Video Call with the patient with greater than 50% spent counseling the patient and coordination of care.
== END 2019-11-14 15:33 | disposition home or self-care (01) ==
LOC: SC 15:32
PROVIDERS: ATTEND Internal Medicine Pulmonary Disease
DX: G47.33 Obstructive sleep apnea (adult) (pediatric) (principal)

== ENCOUNTER 2019-11-24 16:28 | Emergency (ER) | payer MEDICARE ==
[2019-11-24 17:13] LABS: BASOPHILS # (AUTO) 0.1 10^3/uL (0.0-0.1); BASOPHILS % (AUTO) 0.9 %; EOSINOPHILS # (AUTO) 0.1 10^3/uL (0.0-0.7); EOSINOPHILS % (AUTO) 1.2 %; HGB - HEMOGLOBIN 13.7 g/dL (12.0-16.0); LYMPHOCYTES # (AUTO) 2.1 10^3/uL (1.5-3.5); LYMPHOCYTES % (AUTO) 17.9 %; MEAN CORPUSCULAR HGB CONC 32.4 g/dL (32.0-36.0); MEAN CORPUSCULAR VOLUME 83.3 fL (81.0-99.0); MEAN PLATELET VOLUME 10.5 fL (7.9-10.8); MONOCYTES # (AUTO) 0.6 10^3/uL (0.0-1.0); MONOCYTES % (AUTO) 5.1 %; NEUTROPHILS # (AUTO) 8.5 10^3/uL (1.5-6.6); NEUTROPHILS % (AUTO) 74.4 %; PLT - PLATELET COUNT 271 10^3/uL (130-450); RED BLOOD COUNT 5.08 10^6/uL (4.20-5.40); RED CELL DISTRIBUTION WIDTH 14.5 % (12.0-15.0); WHITE BLOOD COUNT 11.5 x10^3/uL (4.8-10.8)
[2019-11-24 17:26] LABS: ALBUMIN 3.6 g/dL (3.2-5.5); CALCIUM 9.6 mg/dL (8.5-10.3); TOTAL PROTEIN 7.3 g/dL (6.7-8.2)
[2019-11-24] MEDS ORDERED: ONDANSETRON 4 MG/2 ML VIAL IVP STA (17:30)
[2019-11-24] MEDS ORDERED: HYDROmorphone 1 MG/ML CARPUJECT IVP STA (17:30)
--- NOTE | 2019-11-24 17:31 | ED Physician Documentation ---
PD HPI ABD PAIN - Stated complaint Stated Complaint: NAUSEA, ABD PX - Chief complaint Chief Complaint: Abd Pain - History obtained from History obtained from: Patient (64-year-old woman with history of diabetes, hysterectomy and oophorectomy, and diverticulitis presents with a month worth of lower abdominal pain. She was seen by her physician and diagnosed with presumptive diverticulitis and she completed a 10-day course of Augmentin today. Despite that she actually feels worse today with some more pain and continued and worsening nausea. She also has a fever but did not know it until she got here.) Review of Systems Ten Systems: 10 systems reviewed and negative Constitutional: reports: Chills, Fatigue GI: reports: Abdominal Pain, Nausea, Vomiting, Constipation. 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 - Present Medications Home Medications: Ambulatory Orders Medication Instructions Recorded Confirmed Amlodipine Besylate 10 mg PO DAILY 03/17/13 01/09/19 Aspirin [Aspir 81] 81 mg PO DAILY 03/17/13 01/09/19 Levothyroxine [Synthroid] 125 mcg PO QDAC 03/17/13 01/09/19 Solifenacin Succinate [Vesicare] 10 mg PO DAILY 03/17/13 01/09/19 Acyclovir 800 mg PO 5XD 10 Days tablet 07/03/17 01/09/19 Albuterol Sulfate [Proair Hfa 2 puffs ORAL Q4HR PRN 01/09/19 01/09/19 Inhaler] Amitriptyline HCl 25 mg ORAL DAILY PM 01/09/19 01/09/19 Cholecalciferol (Vitamin D3) 2,000 unit PO DAILY 01/09/19 01/09/19 [Vitamin D] Cranberry Fruit Extract [Cranberry] 500 mg PO DAILY 01/09/19 01/09/19 Diclofenac Sodium [Voltaren] 100 gm TP PRN PRN 01/09/19 01/09/19 Duloxetine HCl 2 - 30 cap PO DAILY 01/09/19 01/09/19 Estrogens, Conjugated Cream 0.5 applic [id number] OAW 01/09/19 01/09/19 [Premarin Cream] Insulin Glargine [Lantus Solostar] 15 unit SQ BID 01/09/19 01/09/19 Ipratropium/Albuterol [Duoneb] 3 ml INH Q4HR PRN 01/09/19 01/09/19 Lidocaine Ointment 5% [Xylocaine 36 applic TOP BID 01/09/19 01/09/19 Ointment 5%] Losartan Potassium 100 mg PO DAILY 01/09/19 01/09/19 Metformin HCl 1,000 mg ORAL BID 01/09/19 01/09/19 Montelukast [Singulair] 10 mg ORAL DAILY 01/09/19 01/09/19 Omeprazole 20 mg PO BID 01/09/19 01/09/19 Pregabalin [Lyrica] 50 mg PO TID 01/09/19 01/09/19 polyethylene glycoL 3350 [Miralax] 17 gm PO DAILY 01/09/19 01/09/19 Ciprofloxacin HCl [Cipro] 500 mg PO BID #20 tablet 11/24/19 Hydrocodone/Acetaminophen 1 - 2 each PO Q6H PRN #14 tablet 11/24/19 [Hydrocodon-Acetaminophen 5-325] Ondansetron Odt [Zofran] 4 mg TL Q6H PRN #10 tablet 11/24/19 metroNIDAZOLE [Flagyl] 500 mg PO TID #30 tablet 11/24/19 - Allergies Allergies/Adverse Reactions: Allergies Allergy/AdvReac Type Severity Reaction Status Date / Time codeine [Codeine] Allergy "gets Verified 11/24/19 16:48 crazy" phenazopyridine HCl * Allergy Itching Verified 11/24/19 16:48 [From Pyridium] - Social History Does the pt smoke?: No Smoking Status: Never smoker Does the pt drink ETOH?: No Does the pt have substance abuse?: No - Family History Family history: reports: Non contributory - Immunizations Immunizations are current?: Yes - POLST Patient has POLST: No PD ED PE NORMAL - Vitals Vital signs reviewed: Yes - General General: Alert and oriented X 3, No acute distress - HEENT HEENT: PERRL, EOMI - Neck Neck: Supple, no meningeal sign, No bony TTP - Cardiac Cardiac: RRR, No murmur - Respiratory Respiratory: No respiratory distress, Clear bilaterally - Abdomen Abdomen: Other (Slightly hyperactive bowel tones, soft and nontender, exam slightly limited by body habitus noting BMI of 42. Certainly no peritoneal signs though. No rash on the abdominal wall.) - Back Back: No CVA TTP, No spinal TTP - Derm Derm: Normal color, Warm and dry - Extremities Extremities: No deformity, No edema Results - Vitals Vitals: Vital Signs - 24 hr 11/24/19 11/24/19 11/24/19 16:41 16:48 18:47 Temperature 37.9 C H 37.2 C Heart Rate 95 90 87 Respiratory 20 16 16 Rate Blood Pressure 161/94 H 150/89 H 123/63 O2 Saturation 98 96 93 Oxygen O2 Source Room air - Labs Labs: Laboratory Tests 11/24/19 11/24/19 11/24/19 17:05 17:05 17:45 WBC 11.5 H RBC 5.08 Hgb 13.7 Hct 42.3 MCV 83.3 MCH 27.0 MCHC 32.4 RDW 14.5 Plt Count 271 MPV 10.5 Neut # (Auto) 8.5 H Lymph # (Auto) 2.1 [place] # (Auto) 0.6 Eos # (Auto) 0.1 Baso # (Auto) 0.1 Absolute Nucleated RBC 0.00 Nucleated RBC % 0.0 Sodium 138 Potassium 3.4 L Chloride 101 Carbon Dioxide 24 Anion Gap 13.0 BUN 14 Creatinine 1.0 Estimated GFR (MDRD) 56 L Glucose 125 H Calcium 9.6 Total Bilirubin 1.0 AST 28 ALT 30 Alkaline Phosphatase 46 Total Protein 7.3 Albumin 3.6 Globulin 3.7 Albumin/Globulin Ratio 1.0 Lipase 33 Urine Color YELLOW Urine Clarity CLEAR Urine pH 6.0 Ur Specific [place] 1.020 Urine Protein 30 H Urine Glucose (UA) NEGATIVE Urine Ketones NEGATIVE Urine Occult Blood NEGATIVE Urine Nitrite NEGATIVE Urine Bilirubin NEGATIVE Urine Urobilinogen 0.2 (NORMAL) Ur Leukocyte Esterase NEGATIVE Urine RBC None Seen Urine WBC 0-3 Ur Squamous Epith Cells MOD Squamous H Urine Bacteria None Seen Ur Microscopic Review INDICATED Urine Culture Comments NOT INDICATED PD MEDICAL DECISION MAKING - ED course ED course: This is a 64-year-old woman with history of lightest who presents with pain of a pattern c/w with diverticulitis despite recent antibiotics for same. She has a mild leukocytosis and fever here. CT scan was relatively unremarkable but I think she probably does have a smoldering case of diverticulitis that is failed the first round of antibiotic Departure - Departure Disposition: 01 Home, Self Care Condition: Good Record reviewed to determine appropriate education?: Yes Instructions: ED Diverticulitis Prescriptions: Ciprofloxacin HCl [Cipro] 500 mg PO BID #20 tablet Hydrocodone/Acetaminophen [Hydrocodon-Acetaminophen 5-325] 1 - 2 each PO Q6H PRN #14 tablet PRN Reason: pain metroNIDAZOLE [Flagyl] 500 mg PO TID #30 tablet Ondansetron Odt [Zofran] 4 mg TL Q6H PRN #10 tablet PRN Reason: Nausea / Vomiting Comments: Your CAT scan today was notable for scarred right kidney with a kidney stone in it, and diverticuli without severe inflammation. That said with the ongoing fever and pain I suspect you do have a smoldering case of diverticulitis and I am putting you on a different antibiotic. On this antibiotic, do not drink alcohol, it will make you quite sick. Return for new or worsening symptoms. Follow-up with your doctor early next week for recheck. Do not drink or drive while taking prescription pain medications.
[2019-11-24] MEDS ORDERED: IOVERSOL 320 100 ML VIAL IVP ONE ×2 (17:48→18:14)
[2019-11-24 17:58] LABS: BILIRUBIN,URINE NEGATIVE (NEGATIVE); GLUCOSE, URINE (UA) NEGATIVE (NEGATIVE); KETONES,URINE (UA) NEGATIVE (NEGATIVE); LEUKOCYTE ESTERASE, URINE NEGATIVE (NEGATIVE); NITRITE,URINE NEGATIVE (NEGATIVE); OCCULT BLOOD,URINE NEGATIVE (NEGATIVE); PROTEIN,URINE 30 mg/dL (NEGATIVE); UROBILINOGEN,URINE 0.2 (NORMAL) E.U./dL (NORMAL)
[2019-11-24 18:00] LABS: CLARITY,URINE CLEAR (CLEAR)
[2019-11-24 18:17] LABS: BACTERIA,URINE None Seen /HPF (None Seen); RBC,URINE None Seen /HPF (0-5); SQUAMOUS EPITHELIAL CELL,UR MOD Squamous (<= Few)
--- NOTE | 2019-11-24 18:45 | CT Report ---
Reason: low abd pain Procedure Date: 11/24/2019 Accession Number: [id number] / [id number] Procedure: CT - Abdomen/Pelvis W CPT Code: Final Report FULL RESULT: EXAM: CT ABDOMEN AND PELVIS EXAM DATE: 11/24/2019 06:06 PM. CLINICAL HISTORY: Low abd pain. COMPARISONS: ABDOMEN/PELVIS W/ 06/14/2019 7:47 AM ABDOMEN/PELVIS W/ 07/09/2017 3:34 PM. TECHNIQUE: Routine helical CT imaging was performed through the abdomen and pelvis. IV contrast: 100 cc Optiray 320 IV. Enteric contrast: No. Reconstructions: Coronal and sagittal. In accordance with CT protocol optimization, one or more of the following dose reduction techniques were utilized for this exam: automated exposure control, adjustment of mA and/or KV based on patient size, or use of iterative reconstructive technique. FINDINGS: Lung Bases: Unremarkable. Liver: Normal. No masses. Gallbladder/Bile Ducts: Unremarkable. Spleen: Normal. Pancreas: Normal. Adrenal Glands: Normal. Kidneys: There is chronic scarring of the right kidney with volume loss. There is a nonobstructing kidney stone in the inferior pole of the right kidney measuring 8 mm. No obstructing stones or hydronephrosis. There is a calcification in the left lower pelvis which is unchanged over multiple prior exams and appears to be outside of the distal left ureter. Peritoneal Cavity/Bowel: There is mild increased colonic stool. Small bowel is normal in caliber. No abscess or free air. There is a small fat-containing umbilical hernia. Appendix appears normal. Pelvic Organs: Urinary bladder is empty. Uterus is absent. Vasculature: There is moderate diffuse arterial vascular calcification. Bones: No significant abnormality. Other: None. IMPRESSION: 1. No focal colitis or diverticulitis. 2. Mild to moderate constipation. 3. Chronic scarring of the right kidney with a nonobstructing 8 mm right renal stone. RADIA
[2019-11-24] MEDS ORDERED: HYDROcod/ACET 5/325 Prepack 4 PO STA (18:51)
[2019-11-24] MEDS ORDERED: ONDANSETRON ODT 4 MG Prepack 2 TL STA (18:51)
[2019-11-24] MEDS ORDERED: metroNIDAZOLE 250 MG TABLET PO STA (18:51)
[2019-11-24] MEDS ORDERED: CIPROFLOXACIN 250 MG TABLET PO STA (18:51)
[2019-11-24 19:17] VITALS: BP 112/65
== END 2019-11-24 19:16 | disposition home or self-care (01) ==
LOC: ED 16:28
DX: K57.92 Diverticulitis of intestine, part unspecified, without perforation or abscess without bleeding (principal); K59.00 Constipation, unspecified; N20.0 Calculus of kidney; E11.9 Type 2 diabetes mellitus without complications; Z79.4 Long term (current) use of insulin; I10 Essential (primary) hypertension; Z79.82 Long term (current) use of aspirin
CPT/HCPCS: 36415; 74177; 80053; 81001; 83690; 85025; 96374; 99284; A9270; J1170; Q9967; 81003; 87086

== ENCOUNTER 2019-12-11 11:26 | Emergency (ER) | payer MEDICARE ==
[2019-12-11] MEDS ORDERED: MAGNESIUM CITRATE 296 ML BOTTLE PO STA (12:33)
--- NOTE | 2019-12-11 12:35 | ED Physician Documentation ---
History of Present Illness - Stated complaint Stated Complaint: FEMALE - Chief complaint Chief Complaint: Abd Pain - History obtained from History obtained from: Patient - History of Present Illness Timing: How many weeks ago (several weeks) Pain level max: 2 Pain level now: 1 - Additonal information Additional information: 64-year-old female presents to the emergency department complaint of chronic constipation. She states she takes MiraLAX 2-3 times daily and has done so for several years. Nothing makes it better or worse. Recently treated with antibiotics for possible diverticulitis. She has not had any vomiting. No fevers. No significant change in her abdominal pain. States a normal colonos copy 3 years ago. Review of Systems Ten Systems: 10 systems reviewed and negative Constitutional: denies: Fever, Chills GI: denies: Nausea, Vomiting, Diarrhea Skin: denies: Rash Musculoskeletal: denies: Neck pain, Back pain Neurologic: denies: Headache PD PAST MEDICAL HISTORY - Past Medical History Cardiovascular: Hypertension, High cholesterol Respiratory: Shortness of breath, Other Neuro: None Endocrine/Autoimmune: HyPOthyroidism HEENT: None Psych: Anxiety, Other Musculoskeletal: Osteoarthritis, Fibromyalgia, Chronic back pain, Other - Past Surgical History Past Surgical History: Yes Ortho: Knee replacement, Carpal Tunnel surgery, 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, 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 - Present Medications Home Medications: Ambulatory Orders Medication Instructions Recorded Confirmed Amlodipine Besylate 10 mg PO DAILY 03/17/13 01/09/19 Aspirin [Aspir 81] 81 mg PO DAILY 03/17/13 01/09/19 Levothyroxine [Synthroid] 125 mcg PO QDAC 03/17/13 01/09/19 Solifenacin Succinate [Vesicare] 10 mg PO DAILY 03/17/13 01/09/19 Amitriptyline HCl 25 mg ORAL DAILY PM 01/09/19 01/09/19 Cholecalciferol (Vitamin D3) 20,000 unit PO DAILY 01/09/19 01/09/19 [Vitamin D] Duloxetine HCl 60 cap PO DAILY 01/09/19 01/09/19 Metformin HCl 1,000 mg ORAL BID 01/09/19 01/09/19 Montelukast [Singulair] 10 mg ORAL DAILY 01/09/19 01/09/19 Omeprazole 40 mg PO DAILY 01/09/19 01/09/19 polyethylene glycoL 3350 [Miralax] 17 gm PO DAILY 01/09/19 01/09/19 Ciprofloxacin HCl [Cipro] 500 mg PO BID #20 tablet 11/24/19 Hydrocodone/Acetaminophen 1 - 2 each PO Q6H PRN #14 tablet 11/24/19 [Hydrocodon-Acetaminophen 5-325] Ondansetron Odt [Zofran] 4 mg TL Q6H PRN #10 tablet 11/24/19 metroNIDAZOLE [Flagyl] 500 mg PO TID #30 tablet 11/24/19 Amox/Clav 875/125 [Augmentin 1 tab BID 12/07/19 12/07/19 875/125] Insulin Glargine,Hum.rec.anlog 30 units QPM 12/07/19 12/07/19 [Basaglar Kwikpen U-100] Losartan/Hydrochlorothiazide 1 tab DAILY 12/07/19 12/07/19 [Losartan-Hctz 100-25 mg Tab] Lubiprostone [Amitiza] 24 mcg DAILY 12/07/19 12/07/19 Ondansetron Odt [Zofran] 4 mg TL Q6H PRN #10 tablet 12/07/19 Pravastatin Sodium 20 mg PO DAILY 12/07/19 12/07/19 Senna Syrup [Senokot Syrup] 10 ml PO TID PRN 5 Days #150 ml 12/07/19 amLODIPine [Norvasc] 10 mg DAILY 12/07/19 12/07/19 traMADol [Ultram] 25 mg PO Q4-6H PRN 2 Days #8 tablet 12/07/19 - Allergies Allergies/Adverse Reactions: Allergies Allergy/AdvReac Type Severity Reaction Status Date / Time codeine [Codeine] Allergy "gets Verified 12/11/19 11:36 crazy" phenazopyridine HCl * Allergy Itching Verified 12/11/19 11:36 [From Pyridium] - Social History Does the pt smoke?: No Smoking Status: Never smoker Does the pt drink ETOH?: No Does the pt have substance abuse?: No - Immunizations Immunizations are current?: Yes - POLST Patient has POLST: No PD ED PE NORMAL - Vitals Vital signs reviewed: Yes - General General: Alert and oriented X 3, No acute distress - HEENT HEENT: Moist mucous membranes - Neck Neck: Supple, no meningeal sign - Cardiac Cardiac: RRR - Respiratory Respiratory: No respiratory distress, Clear bilaterally - Abdomen Abdomen: Soft, Non tender, Non distended - Derm Derm: Warm and dry - Neuro Neuro: Alert and oriented X 3 - Psych Psych: Normal mood, Normal affect Results - Vitals Vitals: Vital Signs - 24 hr 12/11/19 12/11/19 11:34 13:16 Temperature 36.0 C L 36.8 C Heart Rate 95 77 Respiratory 16 18 Rate Blood Pressure 153/79 H 143/76 H O2 Saturation 95 95 Oxygen O2 Source Room air PD MEDICAL DECISION MAKING - ED course Complexity details: reviewed old records, considered differential, d/w patient ED course: No acute emergency condition today. No evidence of obstruction. No evidence duration. Has chronic laxative abuse, likely causing her chronic constipation. Recommend that she stop using laxatives. Recommend that she follow-up with GI and follow-up with her doctor for further care. Patient counseled regarding signs and symptoms for which I believe and urgent re-evaluation would be necessary. Patient with good understanding of and agreement to plan and is comfortable going home at this time This document was made in part using voice recognition software. While efforts are made to proofread this document, sound alike and grammatical errors may occur. Departure - Departure Disposition: 01 Home, Self Care Clinical Impression: Chronic constipation, Chronic laxative abuse Condition: Good Instructions: ED Constipation Follow-Up: Rell Serna DO [Primary Care Provider] - Within 1 week Comments: Follow-up with your doctor for further care. You need to stop using laxatives at home as this is likely caused damage to your normal intestinal movement. He will likely need to follow-up with a GI doctor as well. Return if you worsen including vomiting, pain or any other new or worrisome symptoms. Discharge Date/Time: 12/11/19 13:20
[2019-12-11 13:17] VITALS: BP 143/76
== END 2019-12-11 13:20 | disposition home or self-care (01) ==
LOC: ED 11:26
DX: K59.09 Other constipation (principal); F55.2 Abuse of laxatives; Z87.19 Personal history of other diseases of the digestive system; I10 Essential (primary) hypertension; Z79.82 Long term (current) use of aspirin
CPT/HCPCS: 99282; 99284; A9270

== ENCOUNTER 2020-03-22 08:00 | Outpatient (CLI) | payer MEDICARE ==
[2020-03-22 18:41] LABS: BASOPHILS # (AUTO) 0.1 10^3/uL (0.0-0.1); BASOPHILS % (AUTO) 1.2 %; EOSINOPHILS # (AUTO) 0.2 10^3/uL (0.0-0.7); EOSINOPHILS % (AUTO) 2.5 %; HGB - HEMOGLOBIN 13.2 g/dL (12.0-16.0); LYMPHOCYTES # (AUTO) 2.3 10^3/uL (1.5-3.5); LYMPHOCYTES % (AUTO) 29.2 %; MEAN CORPUSCULAR HEMOGLOBIN 26.1 pg (27.0-31.0); MEAN CORPUSCULAR HGB CONC 31.4 g/dL (32.0-36.0); MEAN CORPUSCULAR VOLUME 83.2 fL (81.0-99.0); MEAN PLATELET VOLUME 10.9 fL (7.9-10.8); MONOCYTES # (AUTO) 0.5 10^3/uL (0.0-1.0); MONOCYTES % (AUTO) 6.5 %; NEUTROPHILS # (AUTO) 4.7 10^3/uL (1.5-6.6); NEUTROPHILS % (AUTO) 60.3 %; PLT - PLATELET COUNT 272 10^3/uL (130-450); RED BLOOD COUNT 5.06 10^6/uL (4.20-5.40); RED CELL DISTRIBUTION WIDTH 14.2 % (12.0-15.0); WHITE BLOOD COUNT 7.8 x10^3/uL (4.8-10.8)
[2020-03-22 19:02] LABS: ALBUMIN/GLOBULIN RATIO 1.1 (1.0-2.2); ALKALINE PHOSPHATASE 47 IU/L (42-121); ALT ALANINE AMINOTRANSFERASE 31 IU/L (10-60); AST ASPARTATE AMINOTRANSFERASE 27 IU/L (10-42); BILIRUBIN,TOTAL 1.1 mg/dL (0.2-1.0); BUN - BLOOD UREA NITROGEN 16 mg/dL (6-20); CALCIUM 9.4 mg/dL (8.5-10.3); CARBON DIOXIDE - CO2 26 mmol/L (21-32); CHLORIDE 101 mmol/L (101-111); CHOL/HDL RATIO 4.1 (<4.4); CHOLESTEROL 157 mg/dL; CREATININE 1.1 mg/dL (0.4-1.0); GLUCOSE 164 mg/dL (70-100); HDL CHOLESTEROL 38 mg/dL; LDL CHOLESTEROL,CALCULATED 95 mg/dL; LDL/HDL RATIO 2.5 (<4.4); SODIUM 139 mmol/L (135-145); TOTAL PROTEIN 7.7 g/dL (6.7-8.2); VLDL CHOLESTEROL 24 mg/dL
[2020-03-22 19:18] LABS: CREATININE,URINE 238.2 mg/dL; MICROALBUM/CREATININE RATIO,UR 206.1 ug/mg (<30.0); MICROALBUMIN,URINE 49.1 mg/dL (0-300.0)
[2020-03-22 20:58] LABS: HEMOGLOBIN A1c% 6.4 % (4.27-6.07)
== END 2020-03-22 23:59 | disposition home or self-care (01) ==
LOC: LAB.WCP 08:00
PROVIDERS: ATTEND Family Medicine
DX: E11.41 Type 2 diabetes mellitus with diabetic mononeuropathy (principal)
CPT/HCPCS: 36415; 80053; 80061; 82043; 82570; 83036; 83721; 84443; 85025

== ENCOUNTER 2020-11-07 08:00 | Outpatient (CLI) | payer MEDICARE, MEDICAID ==
[2020-11-07 12:32] LABS: BASOPHILS # (AUTO) 0.1 10^3/uL (0.0-0.1); BASOPHILS % (AUTO) 1.2 %; EOSINOPHILS # (AUTO) 0.3 10^3/uL (0.0-0.7); EOSINOPHILS % (AUTO) 3.1 %; HCT - HEMATOCRIT 43.5 % (37.0-47.0); HGB - HEMOGLOBIN 13.9 g/dL (12.0-16.0); LYMPHOCYTES # (AUTO) 2.6 10^3/uL (1.5-3.5); LYMPHOCYTES % (AUTO) 31.4 %; MEAN CORPUSCULAR HEMOGLOBIN 25.9 pg (27.0-31.0); MEAN CORPUSCULAR VOLUME 81.2 fL (81.0-99.0); MEAN PLATELET VOLUME 10.5 fL (7.9-10.8); MONOCYTES # (AUTO) 0.6 10^3/uL (0.0-1.0); MONOCYTES % (AUTO) 7.1 %; NEUTROPHILS # (AUTO) 4.6 10^3/uL (1.5-6.6); PLT - PLATELET COUNT 288 10^3/uL (130-450); RED BLOOD COUNT 5.36 10^6/uL (4.20-5.40); WHITE BLOOD COUNT 8.1 x10^3/uL (4.8-10.8)
[2020-11-07 13:00] LABS: ALBUMIN 4.3 g/dL (3.2-5.5); ALBUMIN/GLOBULIN RATIO 1.2 (1.0-2.2); ALKALINE PHOSPHATASE 44 IU/L (42-121); ALT ALANINE AMINOTRANSFERASE 28 IU/L (10-60); AST ASPARTATE AMINOTRANSFERASE 25 IU/L (10-42); BILIRUBIN,TOTAL 0.8 mg/dL (0.2-1.0); BUN - BLOOD UREA NITROGEN 16 mg/dL (6-20); CALCIUM 10.3 mg/dL (8.5-10.3); CARBON DIOXIDE - CO2 27 mmol/L (21-32); CHLORIDE 103 mmol/L (101-111); CHOL/HDL RATIO 4.4 (<4.4); CHOLESTEROL 173 mg/dL; CREATININE 1.2 mg/dL (0.4-1.0); GFR - MDRD 45 (>89); GLUCOSE 95 mg/dL (70-100); HDL CHOLESTEROL 39 mg/dL; LDL CHOLESTEROL,CALCULATED 113 mg/dL; LDL/HDL RATIO 2.9 (<4.4); POTASSIUM 3.8 mmol/L (3.5-5.0); SODIUM 141 mmol/L (135-145); TOTAL PROTEIN 7.8 g/dL (6.7-8.2); TRIGLYCERIDES 104 mg/dL; VLDL CHOLESTEROL 21 mg/dL
[2020-11-07 13:03] LABS: THYROID STIMULATING HORMONE 1.2 uIU/mL (0.34-5.60)
[2020-11-07 13:11] LABS: ESTIMATED AVERAGE GLUCOSE 131 mg/dL (70-100); HEMOGLOBIN A1c% 6.2 % (4.27-6.07)
== END 2020-11-07 23:59 | disposition home or self-care (01) ==
LOC: LAB.WCP 08:00
PROVIDERS: ATTEND Family Medicine
DX: E11.41 Type 2 diabetes mellitus with diabetic mononeuropathy (principal)
CPT/HCPCS: 36415; 80053; 80061; 82043; 82570; 83036; 83721; 84443; 85025

== ENCOUNTER 2020-11-08 10:26 | Outpatient (CLI) | payer MEDICARE, MEDICAID ==
--- NOTE | 2020-11-08 10:56 | SLEEP CARE CONSULTATION ---
Information from patient questionnaire entered by Nathaly Haas. I have reviewed and concur with the information entered by Nathaly Haas. This document represents the service I personally performed and the decisions made by , Joslyn Paula ARNP. History of Present Illness Service Date and Time: 11/08/2020 1026 Previous diagnosis: Mild, Obstructive Sleep Apnea-Hypopnea Syndrome AHI: 14.8 (in 2018) Reason for follow up: annual (last seen 11/2019) Equipment type: BiPAP Equipment obtained from: [employer] (getting supplies as needed) Mask style: Nasal Backup mask available: Yes (old mask) Last cushion change: last weekend Prior sleep studies: Yes Year and Where: 2018 - [facility]; 2004 - [facility] additional information: ARETHA ANDERS was diagnosed to have mild, AHI 14.8, obstructive sleep apnea- hypopnea syndrome and returned today for BIPAP therapy annual follow-up. CPAP Compliance Data - Data Reviewed with Patient Average duration of nightly device use: 11 hr 32 min Compliance rate %: 100 (180 days) Current pressure setting (cmH2O): 13/7 Humidity settin Heated hose settin Average residual AHI: 0.9 Average large leak: 11 min 27 sec Subjective Patient concerns: reports: mask leak noise (adjusting helps to reduce), dry mouth, nose, throat (chronic dry mouth), other (snore while using device). denies: aerophagia, mask discomfort, air blowing in eyes, condensation in mask/hose, nasal congestion, epistaxis Observed to snore while using device: Yes (occasional snore according to ) Current pressure setting perceived as: comfortable (feels a little too much at certain times, when awake) Initial Aurora Sleepiness Scale score: 14 (in 2013) Current Aurora Sleepiness Scale score: 12 Allergies and Home Medications Home medication list reviewed: Yes (no new meds) Review of Systems Review of systems same as previous: Yes (no changes; in fibromyalgia flare for last 6 weeks) Physical Exam Heart Rate: 95 O2 Saturation: 98 Height: 5 ft 4 in Weight: 241 lb Body Mass Index: 41.3 BMI Classification: Morbidly Obese Impression and Plan 1. Obstructive Sleep Apnea-Hypopnea Syndrome, mild, with excellent treatment compliance and excellent apnea control. On BIPAP therapy, the patient has better sleep quality and is more rested overall. She has significant improvement of her sleep apnea and is satisfied with her treatment. She has lost 72 pounds in the last year with eating mostly fruits, vegetables and whole grains with little fish or chicken. She had diverticulitis last year and lost some weight because she was unable to eat. She continues with this healthier eating. I encouraged her to continue since she is doing so well with this diet. She also continues with 2L Oxygen bled into her BIPAP at night. She states she only uses it at night now. She occasionally feels the pressure is too much but states this is when she is awake and wearing her mask. She will get a burst of air pressure that is hard to breathe with. This is probably due to her being awake at the time. She states the pressure setting are otherwise very comfortable. We will keep her pressure setting at current settings. She voiced understanding and agreement with plan of care. Patient's apnea severity and rationale for treatment to reduce apnea, improve sleep quality and reduce cardiovascular and cerebrovascular events was reviewed. I also reviewed the benefit of consistent device use of BIPAP for hypertension and diabetes. * Continue auto BIPAP pressure at 13/7 cmH2O * Notify me if snoring with mask or feeling that the pressure is too much or too little * Continue to try to lose weight * Call this office if any problems using BIPAP * Return for follow up in 1 year, or sooner if concerns arise Counseling Topics: Spare mask, Weight loss health impact Visit Type: In Office Time Spent with Patient (minutes): 20 Provider Statement: I spent 100% of the Face to Face Visit with the patient with greater than 50% spent counseling the patient and coordination of care.
== END 2020-11-08 10:27 | disposition home or self-care (01) ==
LOC: SC 10:26
PROVIDERS: ATTEND Nurse Practitioner Family
DX: G47.33 Obstructive sleep apnea (adult) (pediatric) (principal); E66.01 Morbid (severe) obesity due to excess calories; Z68.41 Body mass index [BMI] 40.0-44.9, adult
CPT/HCPCS: 99213; G0463; 99212

== ENCOUNTER 2020-11-14 12:07 | Outpatient (CLI) | payer MEDICARE, MEDICAID ==
--- NOTE | 2020-11-14 13:57 | XRAY Report ---
PROCEDURE: Hips 2V BILAT INDICATIONS: HIP PAIN, BILATERAL TECHNIQUE: 2 views of the hip were acquired. COMPARISON: CT of abdomen and pelvis dated 12/07/2019 FINDINGS: Bones: No fractures or dislocations. Symmetric appearing mild to moderate bilateral hip joint osteoa rthritic changes are seen with superior joint space narrowing and subchondral sclerosis. No evidence of avascular necrosis of femoral heads. No suspicious bony lesions. The visualized pelvic ring appea rs intact. Soft tissues: Suture anchors are noted in bilateral superior pubic rami. No suspicious soft tissue ca lcifications or masses. IMPRESSION: Symmetric appearing mild to moderate bilateral hip joint osteoarthritis. No hip fracture or dislocati on. No evidence of avascular necrosis of femoral heads. Post surgical changes are seen in bilateral s uperior pubic rami. Reviewed by: Stanislav Durand MD on 11/14/2020 1:55 PM PDT Approved by: Stanislav Durand MD on 11/14/2020 1:55 PM PDT Station ID: [id number]
--- NOTE | 2020-11-14 15:03 | XRAY Report ---
PROCEDURE: Lumbar Spine 2 View INDICATIONS: LOW BACK PAIN TECHNIQUE: 2 views of the lumbar spine were acquired. COMPARISON: Lumbar spine radiographs 11/12/2016 FINDINGS: Bones: 5 afe-cus-[id number] vertebrae are present. There is grade 1 anterolisthesis of L4 on L5 seconda ry to facet hypertrophy. Mild degenerative endplate changes are seen at multiple levels the spine wit hout significant disc space narrowing. Facet hypertrophy is seen at the L4-5 and L5-S1 levels. No bonilla tebral body compression fractures. No suspicious bony lesions. Soft tissues: Overlying bowel gas pattern is normal. No suspicious soft tissue calcifications. Doris gical clips are seen projecting over the left pelvis. Aortic atherosclerotic calcifications are prese nt. IMPRESSION: No acute osseous abnormality. Mild to moderate multilevel spondylosis. Findings could be further evaluated with lumbar spine MRI if indicated clinically. Reviewed by: Mario Mccain MD on 11/14/2020 3:01 PM PDT Approved by: Mario Mccain MD on 11/14/2020 3:01 PM PDT Station ID: [id number]
== END 2020-11-14 12:08 | disposition home or self-care (01) ==
LOC: DI.N 12:07
PROVIDERS: ATTEND Family Medicine
DX: M16.0 Bilateral primary osteoarthritis of hip (principal); M47.816 Spondylosis without myelopathy or radiculopathy, lumbar region

== ENCOUNTER 2020-12-16 09:15 | Outpatient (CLI) | payer MEDICARE, MEDICAID ==
--- NOTE | 2020-12-16 13:19 | XRAY Report ---
PROCEDURE: Hips 2V BILAT INDICATIONS: BILATERAL HIP PX TECHNIQUE: 2 views of the hip were acquired. COMPARISON: Xray hip 11/14/20 FINDINGS: Bones: No fractures or dislocations. No suspicious bony lesions. The visualized pelvic ring appear s intact. Mild to moderate degenerative bilateral hip joint space narrowing, unchanged. Soft tissues: No suspicious soft tissue calcifications or masses. IMPRESSION: Mild to moderate bilateral hip osteoarthritis. Reviewed by: Izzy Baca MD on 12/16/2020 1:18 PM PDT Approved by: Izzy Baca MD on 12/16/2020 1:18 PM PDT Station ID: [id number]
== END 2020-12-16 23:59 | disposition home or self-care (01) ==
LOC: DI.N 09:15
PROVIDERS: ATTEND Orthopaedic Surgery
DX: M16.0 Bilateral primary osteoarthritis of hip (principal)

== ENCOUNTER 2021-04-21 07:38 | Outpatient (CLI) | payer MEDICARE | END 2021-04-21 07:39 | disposition critical access hospital (66) | LOC: EMS 07:38 | DX: U07.1 COVID-19 (principal) | CPT/HCPCS: A0425; A0429 ==

== ENCOUNTER 2021-04-21 08:12 | Emergency (ER) | payer MEDICAID, MEDICARE ==
--- NOTE | 2021-04-21 08:41 | XRAY Report ---
PROCEDURE: Chest 1 View X-Ray INDICATIONS: chest pain TECHNIQUE: One view of the chest was acquired. COMPARISON: 07/16/2016 and 09/20/2014 FINDINGS: Surgical changes and devices: None. Lungs and pleura: No pleural effusions or pneumothorax. Mild pulmonary vascular congestion is seen. No definite focal infiltrate. Mediastinum: Mediastinal contours appear normal. Heart size is enlarged. Bones and chest wall: No suspicious bony lesions. Overlying soft tissues appear unremarkable. IMPRESSION: Cardiomegaly and mild pulmonary vascular congestion. No definite focal infiltrate. No significant ple ural effusion or pneumothorax. Reviewed by: Stanislav Durand MD on 04/21/2021 8:40 AM PDT Approved by: Stanislav Durand MD on 04/21/2021 8:40 AM PDT Station ID: [id number]
[2021-04-21] MEDS ORDERED: ACETAMINOPHEN 325 MG TABLET PO STA (08:51)
--- NOTE | 2021-04-21 08:55 | ED Physician Documentation ---
PD HPI URI - Stated complaint Stated Complaint: SOA - Chief complaint Chief Complaint: Resp - History obtained from History obtained from: Patient - History of Present Illness Timing - onset: How many days ago (10) Timing duration: Days (10) Timing details: Gradual onset, Still present Associated symptoms: Fever, Nasal congestion, Rhinorrhea, Sore throat, Dry cough, Dyspnea Contributing factors: Sick contact (granddaughter with COVID), COPD / asthma Improves by: Rest Worsened by: Activity Similar symptoms before: Has not had sx before Recently seen: Clinic - Additional information Additional information: 65-year-old female immunized with [employer] 4 months ago has developed Covid. She was exposed to a granddaughter 3 weeks ago and the granddaughter tested positive and the family went and got tested she tested +10 days ago. She has had some symptoms of cough and congestion and shortness of breath. She has developed nausea vomiting and diarrhea and today feels weak. She has oxygen at home that she uses 3 L nasal cannula at night. She has had fever. Review of Systems Constitutional: reports: Fever, Chills, Myalgias, Fatigue Eyes: denies: Decreased vision Ears: denies: Ear pain Nose: reports: Rhinorrhea / runny nose, Congestion Throat: reports: Sore throat Cardiac: denies: Chest pain / pressure, Palpitations Respiratory: reports: Dyspnea, Cough GI: reports: Nausea, Vomiting, Diarrhea. denies: Abdominal Pain : denies: Dysuria, Frequency Skin: denies: Rash Musculoskeletal: reports: Back pain. denies: Neck pain, Extremity pain Neurologic: reports: Generalized weakness. 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, Oophrectomy - Present Medications Home Medications: Ambulatory Orders Medication Instructions Recorded Confirmed Amlodipine Besylate 10 mg PO DAILY 03/17/13 01/09/19 Aspirin [Aspir 81] 81 mg PO DAILY 03/17/13 01/09/19 Levothyroxine [Synthroid] 125 mcg PO QDAC 03/17/13 01/09/19 Solifenacin Succinate [Vesicare] 10 mg PO DAILY 03/17/13 01/09/19 Amitriptyline HCl 25 mg ORAL DAILY PM 01/09/19 01/09/19 Cholecalciferol (Vitamin D3) 20,000 unit PO DAILY 01/09/19 01/09/19 [Vitamin D] Duloxetine HCl 60 cap PO DAILY 01/09/19 01/09/19 Metformin HCl 1,000 mg ORAL BID 01/09/19 01/09/19 Montelukast [Singulair] 10 mg ORAL DAILY 01/09/19 01/09/19 Omeprazole 40 mg PO DAILY 01/09/19 01/09/19 polyethylene glycoL 3350 [Miralax] 17 gm PO DAILY 01/09/19 01/09/19 Ciprofloxacin HCl [Cipro] 500 mg PO BID #20 tablet 11/24/19 Hydrocodone/Acetaminophen 1 - 2 each PO Q6H PRN #14 tablet 11/24/19 [Hydrocodon-Acetaminophen 5-325] Ondansetron Odt [Zofran] 4 mg TL Q6H PRN #10 tablet 11/24/19 metroNIDAZOLE [Flagyl] 500 mg PO TID #30 tablet 11/24/19 Amox/Clav 875/125 [Augmentin 1 tab BID 12/07/19 12/07/19 875/125] Insulin Glargine,Hum.rec.anlog 30 units QPM 12/07/19 12/07/19 [Basaglar Kwikpen U-100] Losartan/Hydrochlorothiazide 1 tab DAILY 12/07/19 12/07/19 [Losartan-Hctz 100-25 mg Tab] Lubiprostone [Amitiza] 24 mcg DAILY 12/07/19 12/07/19 Ondansetron Odt [Zofran] 4 mg TL Q6H PRN #10 tablet 12/07/19 Pravastatin Sodium 20 mg PO DAILY 12/07/19 12/07/19 Senna Syrup [Senokot Syrup] 10 ml PO TID PRN 5 Days #150 ml 12/07/19 amLODIPine [Norvasc] 10 mg DAILY 12/07/19 12/07/19 traMADol [Ultram] 25 mg PO Q4-6H PRN 2 Days #8 tablet 12/07/19 Dexamethasone [Decadron] 6 mg PO DAILY #10 tablet 04/21/21 - Allergies Allergies/Adverse Reactions: Allergies Allergy/AdvReac Type Severity Reaction Status Date / Time codeine [Codeine] Allergy "gets Verified 12/11/19 11:36 crazy" phenazopyridine HCl * Allergy Itching Verified 12/11/19 11:36 [From Pyridium] - Social History Does the pt smoke?: No Smoking Status: Never smoker Does the pt drink ETOH?: No Does the pt have substance abuse?: No - Immunizations Immunizations are current?: Yes - POLST Patient has POLST: No PD ED PE NORMAL - Vitals Vital signs reviewed: Yes (febrile, tachy, tachpneic and hypertensive with room air hypoxia. ) - General General: Alert and oriented X 3, No acute distress, Well developed/nourished - HEENT HEENT: Atraumatic, PERRL, EOMI - Neck Neck: No bony TTP - Cardiac Cardiac: No murmur, Other (tachy to 100) - Respiratory Respiratory: No respiratory distress, Other (right upper lobe rhales) - Abdomen Abdomen: Soft, Non tender - Back Back: No CVA TTP, No spinal TTP - Derm Derm: Normal color, Warm and dry, No rash - Extremities Extremities: No deformity, No edema - Neuro Neuro: Alert and oriented X 3, pad extractor tender 2-12 intact, No motor deficit, No sensory deficit, Normal speech Eye Opening: Spontaneous Motor: Obeys Commands Verbal: Oriented GCS Score: 15 - Psych Psych: Normal mood, Normal affect Results - Vitals Vitals: Vital Signs - 24 hr 04/21/21 04/21/21 04/21/21 08:18 09:32 10:48 Temperature 39.7 C H Heart Rate 98 96 82 Respiratory 33 H 19 24 Rate Blood Pressure 161/83 H 130/71 134/71 H O2 Saturation 96 96 95 04/21/21 04/21/21 04/21/21 10:53 11:27 15:20 Temperature 38.1 C H Heart Rate 83 80 Respiratory 28 H 23 Rate Blood Pressure 138/87 H O2 Saturation 84 L 99 Oxygen O2 Source Room air Oxygen Flow Rate 3 - Labs Labs: Laboratory Tests 04/21/21 04/21/21 04/21/21 08:35 08:35 08:35 WBC 7.5 RBC 5.28 Hgb 13.8 Hct 43.3 MCV 82.0 MCH 26.1 L MCHC 31.9 L RDW 14.1 Plt Count 157 MPV 10.3 Neut # (Auto) 5.3 Lymph # (Auto) 1.6 Dickinson # (Auto) 0.5 Eos # (Auto) 0.1 Baso # (Auto) 0.0 Absolute Nucleated RBC 0.00 Nucleated RBC % 0.0 Manual Slide Review Indicated WBC Morphology NORMAL APPEARANCE Platelet Estimate NORMAL (130-450,000) Platelet Morphology NORMAL APPEARANCE RBC Morph Micro Appear NORMAL APPEARANCE Sodium 138 Potassium 3.7 Chloride 97 L Carbon Dioxide 27 Anion Gap 14.0 H BUN 16 Creatinine 1.3 H Estimated GFR (MDRD) 41 L Glucose 167 H Lactic Acid 2.1 Calcium 9.1 Total Bilirubin 1.1 H AST 33 ALT 29 Alkaline Phosphatase 43 Total Protein 7.7 Albumin 3.7 Globulin 4.0 Albumin/Globulin Ratio 0.9 L Lipase 40 Urine Color Urine Clarity Urine pH Ur Specific Keystone Urine Protein Urine Glucose (UA) Urine Ketones Urine Occult Blood Urine Nitrite Urine Bilirubin Urine Urobilinogen Ur Leukocyte Esterase Urine RBC Urine WBC Ur Squamous Epith Cells Urine Bacteria Ur Microscopic Review Urine Culture Comments 04/21/21 14:54 WBC RBC Hgb Hct MCV MCH MCHC RDW Plt Count MPV Neut # (Auto) Lymph # (Auto) Dickinson # (Auto) Eos # (Auto) Baso # (Auto) Absolute Nucleated RBC Nucleated RBC % Manual Slide Review WBC Morphology Platelet Estimate Platelet Morphology RBC Morph Micro Appear Sodium Potassium Chloride Carbon Dioxide Anion Gap BUN Creatinine Estimated GFR (MDRD) Glucose Lactic Acid Calcium Total Bilirubin AST ALT Alkaline Phosphatase Total Protein Albumin Globulin Albumin/Globulin Ratio Lipase Urine Color YELLOW Urine Clarity CLEAR Urine pH 5.5 Ur Specific Keystone 1.020 Urine Protein 100 H Urine Glucose (UA) NEGATIVE Urine Ketones 15 H Urine Occult Blood TRACE-LYSE Urine Nitrite NEGATIVE Urine Bilirubin NEGATIVE Urine Urobilinogen 0.2 (NORMAL) Ur Leukocyte Esterase NEGATIVE Urine RBC 0-5 Urine WBC 0-3 Ur Squamous Epith Cells MOD Squamous H Urine Bacteria Rare Ur Microscopic Review INDICATED Urine Culture Comments NOT INDICATED - Rads (name of study) chest Radiology: Prelim report reviewed (Impression: Cardiomegaly and mild pulmonary vascular congestion. No definite focal infiltrate. No significant pleural effusion or pneumothorax.), EMP read indepedently, See rad report PD MEDICAL DECISION MAKING - ED course Complexity details: reviewed old records, reviewed results, re-evaluated patient, considered differential, d/w patient ED course: 65-year-old female with a history of COPD has developed Covid and she has had some coughing and shortness of breath but she has mostly had diarrhea and vomiting. She is dehydrated and she is hydrated here in the emergency department with a feeling of improvement. She uses nasal cannula oxygen at night at the rate of 3 L. She is having some hypoxia on room air now. She corrects easily with a 3 L that she has. I consulted our hospitalist regarding potential admission versus outpatient treatment and she recommended outpatient treatment with the addition of dexamethasone 6 mg daily for 10 days. The patient was administered 10 mg intravenously here and we will place her on 6 mg daily. She has some improvement while she was awaiting a urine specimen. She even made it up to being 95% on room air. Departure - Departure Disposition: 01 Home, Self Care Clinical Impression: Dehydration, COVID-19 Condition: Stable Instructions: ED Dehydration, COVID-19 [facility], Flu and Cold: Nutrition, Prevention and Treatment Tips Follow-Up: Rell Serna DO [Primary Care Provider] - Prescriptions: Dexamethasone [Decadron] 6 mg PO DAILY #10 tablet
[2021-04-21] MEDS ORDERED: ONDANSETRON 4 MG/2 ML VIAL IVP STA (08:57)
[2021-04-21] MEDS ORDERED: ONDANSETRON 4 MG/2 ML VIAL ONE (09:00)
[2021-04-21 09:01] LABS: BASOPHILS % (AUTO) 0.4 %; EOSINOPHILS # (AUTO) 0.1 10^3/uL (0.0-0.7); EOSINOPHILS % (AUTO) 0.8 %; HCT - HEMATOCRIT 43.3 % (37.0-47.0); HGB - HEMOGLOBIN 13.8 g/dL (12.0-16.0); LYMPHOCYTES # (AUTO) 1.6 10^3/uL (1.5-3.5); LYMPHOCYTES % (AUTO) 20.8 %; MEAN CORPUSCULAR HEMOGLOBIN 26.1 pg (27.0-31.0); MEAN CORPUSCULAR HGB CONC 31.9 g/dL (32.0-36.0); MEAN PLATELET VOLUME 10.3 fL (7.9-10.8); MONOCYTES # (AUTO) 0.5 10^3/uL (0.0-1.0); NEUTROPHILS # (AUTO) 5.3 10^3/uL (1.5-6.6); NEUTROPHILS % (AUTO) 70.6 %; PLT - PLATELET COUNT 157 10^3/uL (130-450); RED BLOOD COUNT 5.28 10^6/uL (4.20-5.40); RED CELL DISTRIBUTION WIDTH 14.1 % (12.0-15.0); SLIDE REVIEW? Indicated; WHITE BLOOD COUNT 7.5 x10^3/uL (4.8-10.8)
[2021-04-21 09:11] LABS: ALBUMIN 3.7 g/dL (3.2-5.5); ALBUMIN/GLOBULIN RATIO 0.9 (1.0-2.2); BILIRUBIN,TOTAL 1.1 mg/dL (0.2-1.0); CALCIUM 9.1 mg/dL (8.5-10.3); CREATININE 1.3 mg/dL (0.4-1.0); POTASSIUM 3.7 mmol/L (3.5-5.0); TOTAL PROTEIN 7.7 g/dL (6.7-8.2)
[2021-04-21] MEDS ORDERED: SODIUM CHLORIDE 0.9% 1,000 ML IV STA (09:16)
[2021-04-21 09:20] LABS: PLATELET ESTIMATE, MANUAL NORMAL (130-450,000) (NORMAL); PLATELET MORPHOLOGY NORMAL APPEARANCE (NORMAL); RBC MORPHOLOGY (MULTIPLE) NORMAL APPEARANCE (NORMAL); WBC MORPHOLOGY (MULTIPLE) NORMAL APPEARANCE (NORMAL)
[2021-04-21 15:10] LABS: BILIRUBIN,URINE NEGATIVE (NEGATIVE); GLUCOSE, URINE (UA) NEGATIVE (NEGATIVE); KETONES,URINE (UA) 15 mg/dL (NEGATIVE); LEUKOCYTE ESTERASE, URINE NEGATIVE (NEGATIVE); NITRITE,URINE NEGATIVE (NEGATIVE); OCCULT BLOOD,URINE TRACE-LYSE (NEGATIVE); PH,URINE 5.5 PH (5.0-7.5); PROTEIN,URINE 100 mg/dL (NEGATIVE); UROBILINOGEN,URINE 0.2 (NORMAL) E.U./dL (NORMAL)
[2021-04-21 15:16] LABS: CLARITY,URINE CLEAR (CLEAR)
[2021-04-21 15:42] LABS: BACTERIA,URINE Rare /HPF (None Seen); RBC,URINE 0-5 /HPF (0-5); SQUAMOUS EPITHELIAL CELL,UR MOD Squamous (<= Few); WBC,URINE 0-3 /HPF (0-5)
[2021-04-21 16:40] VITALS: BP 138/80
== END 2021-04-21 16:40 | disposition home or self-care (01) ==
LOC: EDUNIT# → ED 08:12
DX: U07.1 COVID-19 (principal); E86.0 Dehydration; J44.9 Chronic obstructive pulmonary disease, unspecified; I10 Essential (primary) hypertension; E03.9 Hypothyroidism, unspecified; F41.9 Anxiety disorder, unspecified; M79.7 Fibromyalgia; G89.29 Other chronic pain; M54.9 Dorsalgia, unspecified; Z79.82 Long term (current) use of aspirin
CPT/HCPCS: 36415; 71045; 80053; 81001; 83605; 83690; 85025; 87040; 96361; 96374; 99284; 99285; A9270; 81003; 87086